=== PATIENT | male | born 1935 | race Caucasian/White ===

== ENCOUNTER 2023-05-04 09:50 | Inpatient (IN) | payer MEDICARE, SELFPAY ==
[2023-05-04] VITALS (16 sets, daily range): BP systolic 121–153; BP diastolic 62–92; PULSE 60–107; RESP 16–19; TEMP 36.4–37.9; O2SAT 91–98; BMI 27.6
--- NOTE | ~2023-05-04 | US_ITS ---
US right upper quadrant DATE: 05/04/2023 12:02 INDICATION: Right upper quadrant abdominal pain TECHNIQUE: Real-time imaging of liver, pancreas, gallbladder COMPARISON: None FINDINGS: No hepatic or pancreatic space-occupying mass lesion is evident. Hepatopedal portal venous flow. Approximately 8 mm echogenic focus is noted the gallbladder neck. No gallbladder wall thickening or p ericholecystic fluid collection. Negative sonographic López's sign. IMPRESSION: Suspected stone in gallbladder neck Reviewed, dictated and finalized at [facility] Reviewed, dictated and finalized at [facility].
--- NOTE | ~2023-05-04 | XR_ITS ---
XR chest 1V portable 05/11/2023 13:19 Indication: Wheezing. Procedure: AP portable chest Comparison: No prior studies for comparison. Findings: Cardiomegaly. Mild interstitial edema. No significant effusion. No pneumothorax. Impression: 1: Mild interstitial edema. Reviewed, dictated and finalized at [facility]. Impression: 1: Mild interstitial edema.
[2023-05-04 10:26] LABS: Basophils Percent Auto 0.3 % (0.2-1.2); Eosinophils Percent Auto 0.1 % (0-4.4); Hematocrit 45.6 % (42.0-52.0); Hemoglobin 14.5 g/dL (14.0-18.0); Immature Granulocyte Absolute 0.06 K/mm3 (0.00-0.031); Immature Granulocyte Percent A 0.5 % (0-0.5); Lymphocytes Absolute Auto 1.19 K/mm3 (0.9-3.2); Lymphocytes Percent Auto 9.9 % (18.3-44.2); Mean Corpuscular HGB Conc 31.8 g/dl (32-36); Mean Corpuscular Hemoglobin 30.6 pg (26-34); Mean Corpuscular Volume 96.2 fl (80-100); Mean Platelet Volume 9.8 fl (7.4-10.4); Monocytes Absolute Auto 0.4 K/mm3 (0.1-0.6); Monocytes Percent Auto 3.2 % (2.6-8.5); Neutrophils Absolute Auto 10.3 K/mm3 (1.3-6.7); Platelet Count Result 281 k/mm3 (150-375); Red Blood Count 4.74 M/mm3 (4.6-6.20); Red Cell Distribution Width 13.5 % (11.5-14.5)
[2023-05-04 10:28] LABS: Appearance Urine Clear (Clear); Bilirubin Urine Negative (Negative); Blood Urine Negative (Negative); Color Urine Yellow (Yellow); Glucose Urine UA Trace mg/dL (Negative); Ketones Urine Trace mg/dL (Negative); Leukocyte Esterase Ur Negative LEU/UL (Negative); Nitrate Urine Negative (Negative); Protein Urine Negative (Negative); Specific Grav Ur 1.025 (1.001-1.035)
[2023-05-04] MEDS: ONDANSETRON INJ 4 MG/2 ML VIAL IV PUSH (10:28)
[2023-05-04] MEDS: MORPHINE SULFATE (*CRX) 2 MG/ML INJ IV PUSH (10:31)
--- NOTE | 2023-05-04 10:32 | ED.ABDPAIN ---
HPI - Abdominal Pain General Chief Complaint: Abdominal Pain Stated Complaint: Abdomen pain Time Seen by Provider: 05/04/23 09:59 History of Present Illness HPI narrative: Patient is an 87-year-old male who presents ER with right upper quadrant abdominal pain. Began last night. Started as nausea. Symptoms of been persistent and cause increased. No aggravating or alleviating factors that she has noted. No radiation. He reports he ate pork tenderloin last night. No history of gallbladder issues. No urinary frequency urgency or dysuria. Normal stool Related Data Home Medications Medication Instructions Recorded Confirmed aspirin 81 mg tablet,delayed 81 mg PO DAILY 05/04/23 05/04/23 release atorvastatin 20 mg tablet 20 mg PO DAILY 05/04/23 05/04/23 metformin 500 mg tablet,extended 500 mg PO DAILY 05/04/23 05/04/23 release 24 hr potassium chloride 20 mEq 20 meq PO DAILY 05/04/23 05/04/23 tablet,extended release Allergies Allergy/AdvReac Type Severity Reaction Status Date / Time Sulfa (Sulfonamide Allergy Unknown Unknown Verified 05/04/23 10:04 Antibiotics) Review of Systems Review of Systems: All systems reviewed & are unremarkable except as noted in HPI and below Constitutional: Constitutional: Denies chills and Denies fever(s) Gastrointestinal: Gastrointestinal: Reports abdominal pain, Denies constipation, Denies diarrhea, Reports nausea and Denies vomiting Genitourinary: Genitourinary: Denies hematuria, Denies dysuria and Denies urinary frequency Musculoskeletal: Musculoskeletal: Denies back pain and Denies myalgias PMFSH Past Medical History Medical History Dyslipidemia Essential (primary) hypertension Type 2 diabetes mellitus Surgical History Surgical History History of bilateral inguinal hernia repair (1989) History of bunionectomy of right great toe (1997) History of cataract extraction with lens replacement History of hydrocelectomy (03/2008) History of left inguinal hernia repair (08/2014) Family History Family History Father Family history of heart disease in male family member before age 55 Hypertension Sibling Family history of malignant neoplasm of esophagus Other Family history of malignant neoplasm Social History Social History Social History: Surrogate medical decision maker: placido Harmon. Code status: Full code. Smoking status: Never smoker Alcohol intake: current Drinks per week: 1 Alcohol use details: Social alcohol use in moderation. Substance use: never Lack of Transportation: No Lack of Food: Never True Current Housing: I Have Housing Concerned About Future Housing: No Difficulty Paying Gas/Electric Bills: No Difficulty Paying for Meds: No Currently Unemployed: No Education: Bachelor's Degree Difficulty w/ Childcare or Family Care: No Spiritual care concerns: No Exam Narrative: GENERAL: Well-appearing, well-nourished, and in no acute distress. HEAD: Normocephalic, atraumatic. EYES: PERRL and EOMI. ENT: Mucous membranes moist. CHEST: Clear to auscultation. No respiratory distress. HEART: Regular rate and rhythm. Normal peripheral pulses. ABDOMEN: Soft, palpation right upper quadrant of the abdomen with positive López sign, nondistended, normal active bowel sounds.. EXTREMITIES: Normal range of motion. No edema. SKIN: Warm, dry, no rash. NEURO: Alert and oriented x3. PSYCH: Normal mood and affect. Course Course Emergency Course: Patient history is resting comfortably but still with discomfort in the right upper quadrant. Discussed case with general surgery who would recommend IV antibiotics, n.p.o. with ice chips, and medical admission. Patient has been accepted by the medical ser
[2023-05-04 10:33] LABS: Add Urine Microscopic? NO
[2023-05-04 10:41] LABS: Alanine Aminotransferase 29 U/L (6-50); Albumin Level 4.4 g/dL (3.5-5.1); Alkaline Phosphatase 84 U/L (38-126); Anion Gap 11 mmol/L (8-16); Aspartate Amino Transferase 28 U/L (17-59); Bilirubin,Total 0.6 mg/dL (0.2-1.3); Blood Urea Nitrogen 18 mg/dL (9-20); Carbon Dioxide 27 mmol/L (22-30); Chloride 101 mmol/L (98-107); Estimated CRCL calculation 47 ml/min; Estimated Glomerular Filt Rate > 60; Glucose 177 mg/dL (65-110); Lipase 61 U/L (23-300); Potassium 4.2 mmol/L (3.4-5.0); Sodium 139 mmol/L (137-145)
[2023-05-04] MEDS: MORPHINE SULFATE (*CRX) 4 MG/ML INJ 2 MG IV PUSH (12:24)
--- NOTE | 2023-05-04 13:00 | PC.NURSE ---
no cultures needed prior to antibiotics per MD Alvarez.
[2023-05-04] MEDS: PIPERACILLN/TAZ 3.375GM/NS50ML 3.375 GM/50 ML BAG IVPB ×2 (13:03→17:08)
--- NOTE | 2023-05-04 13:19 | PM.IMHP ---
H&P: HPI History of Present Illness Date/Time: 05/04/23 14:00 Chief Complaint: Abdominal pain. Narrative: This is an 87-year-old male with hyperlipidemia, hyperlipidemia, and prediabetes with a reported recent hemoglobin A1c of 6% who presented to the emergency department via private vehicle from home for evaluation of abdominal pain. The patient provides the following history. He had pork tenderloin for dinner last night and hours later he developed nausea, vomiting, and nonradiating right upper quadrant pain ?like I pulled a muscle.? his symptoms persisted throughout the night and he came in today for evaluation. He has never had similar symptoms. He has known history of gallbladder disease, peptic ulcer disease, or pancreatitis. He denies fever, chills, sweats, chest pain, shortness a breath, hematemesis, and diarrhea. In the ED he was found to have right upper quadrant pain on exam, a WBC count of 12,000, and a right upper quadrant ultrasound showing 8 mm suspected stone in the gallbladder neck. His pain has improved somewhat with IV morphine. He was started on Zosyn and is being admitted in this setting for pain control and surgery consultation. Review of Systems Review of Systems: Twelve systems were reviewed and are negative except for as per HPI. FOR[facility]LY [facility] Past Medical History Medical History (Updated 05/05/23 @ 14:15 by Luz Montoya PA-C) Dyslipidemia Essential (primary) hypertension Prediabetes Surgical History Surgical History History of bilateral inguinal hernia repair (1989) History of bunionectomy of right great toe (1997) History of cataract extraction with lens replacement History of hydrocelectomy (03/2008) History of left inguinal hernia repair (08/2014) Family History Family History Father Family history of heart disease in male family member before age 55 Hypertension Sibling Family history of malignant neoplasm of esophagus Other Family history of malignant neoplasm Social History Social History (Updated 05/05/23 @ 14:16 by Luz Montoya PA-C) Social History: Surrogate medical decision maker: Fabio Tenorio, placido. Code status: Full code. Smoking status: Never smoker Alcohol intake: current Drinks per week: 1 Alcohol use details: Social alcohol use in moderation. Substance use: never Lack of Transportation: No Lack of Food: Never True Current Housing: I Have Housing Concerned About Future Housing: No Difficulty Paying Gas/Electric Bills: No Difficulty Paying for Meds: No Currently Unemployed: No Education: Bachelor's Degree Difficulty w/ Childcare or Family Care: No Additional living arrangements comments: Lives with spouse. 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 Spiritual care concerns: No Meds Home Medications and Allergies Home Medications Medication Instructions Recorded Confirmed Type aspirin 81 mg tablet,delayed 81 mg PO DAILY 05/04/23 05/04/23 History release atorvastatin 20 mg tablet 20 mg PO DAILY 05/04/23 05/04/23 History metformin 500 mg tablet,extended 500 mg PO DAILY 05/04/23 05/04/23 History release 24 hr potassium chloride 20 mEq 20 meq PO DAILY 05/04/23 05/04/23 History tablet,extended release Allergies Allergy/AdvReac Type Severity Reaction Status Date / Time Sulfa (Sulfonamide Allergy Unknown Unknown Verified 05/04/23 10:04 Antibiotics) Vital Signs Vital Signs - 24 hr 05/04/23 10:02 05/04/23 12:27 Temperature 97.5 F L Pulse Rate 76 63 Respiratory Rate 18 Blood Pressure 153/92 H 145/83 H Pulse Oximetry 98 97 Oxygen Delivery Room Air Exam Narrative: General: Well-developed nontoxic-appearing male in the semi-Hernandez position in bed in no distress. Weight: 84.8 kg. BMI: 27.6. HEENT: PERRL, EOMI. Sclera anicteric. Oral mucosa
[2023-05-04] MEDS: SODIUM CHLORIDE 0.9% IV 1,000 ML 125 ML IV CONT (13:50)
--- NOTE | 2023-05-04 14:42 | PC.NURSE ---
admitted to floor with IV fluids infusing per order
--- NOTE | 2023-05-04 15:02 | PM.CNGS ---
Assessment and Plan Assessment and plan (1) Cholecystitis with cholelithiasis: Qualifiers: Biliary obstruction: with biliary obstruction Cholecystitis acuity: acute Cholelithiasis location: gallbladder Qualified Code(s): K80.01 - Calculus of gallbladder with acute cholecystitis with obstruction Code(s): K80.10 - Calculus of gallbladder with chronic cholecystitis without obstruction Status: Acute Assessment and Plan: Appears to have acute cholecystitis with relatively small obstructing stone in or near cystic duct. Since patient still having considerable pain after narcotic analgesics, agree best to admit and start IV antibiotics, make NPO, and administer IV narcotics as needed for pain control. Hopefully, pain will dissipate and can feed tomorrow. Will need eventual cholecystectomy but may be able to be done as outpatient if symptoms resolve. Thanks for asking me to see this patient in consultation. I will follow along with you. (2) Type 2 diabetes mellitus: Code(s): E11.9 - Type 2 diabetes mellitus without complications Status: Chronic Assessment and Plan: blood sugars only mildly elevated (3) Essential (primary) hypertension: Code(s): I10 - Essential (primary) hypertension Status: Chronic (4) Dyslipidemia: Code(s): E78.5 - Hyperlipidemia, unspecified Status: Chronic History of Present Illness Consult details Consult date: 05/04/23 Reason for consult: abdominal pain Requesting physician: Dom Alvarez MD Narrative: Patient is an 87 yo man with hypertension and NIDDM who came to the ER earlier today with vomitting and RUQ abdominal pain. Pain and emesis started last night after eating pork tenderloin. Persisted through the night and came to ED this morning. Exam showed RUQ tenderness and labs remarkable for WBC of 12,000. LFT's and lipase were normal. U/S of GB showed 8mm echogenic lesion in neck of GB or cystic duct suspected of being a stone. There was no sonographic López's sign, GB wall thickening or pericholecystic fluid. Patient had 2 rounds of IV Morphine in the ED and was still having pretty significant discomfort. He has been admitted and is now seen in consultation for possible cholecystitis. Blood sugar in the ED was 177. Review of Systems Review of Systems: All systems reviewed & are unremarkable except as noted in HPI and below (HPI and those items noted below) Constitutional: Constitutional: Denies chills and Denies fever(s) Cardiovascular: Cardiovascular: Denies chest pain, Denies diaphoresis, Denies dyspnea and Denies paroxysmal nocturnal dyspnea Respiratory: Respiratory: Denies chest congestion, Denies cough and Denies dyspnea Integumentary/Breasts: Skin/Breast: Denies lesions and Denies rash PMFSH Past Medical History Medical History Dyslipidemia Essential (primary) hypertension Type 2 diabetes mellitus Surgical History Surgical History History of bilateral inguinal hernia repair (1989) History of bunionectomy of right great toe (1997) History of cataract extraction with lens replacement History of hydrocelectomy (03/2008) History of left inguinal hernia repair (08/2014) Family History Family History Father Family history of heart disease in male family member before age 55 Hypertension Sibling Family history of malignant neoplasm of esophagus Other Family history of malignant neoplasm Social History Social History Social History: Surrogate medical decision maker: Fabio Tenorio, son. Code status: Full code. Smoking status: Never smoker Alcohol intake: current Drinks per week: 1 Alcohol use details: Social alcohol use in moderation. Substance use: never Lack of Transportation: No [place]
[2023-05-04] MEDS: ENOXAPARIN 30 MG/0.3 ML SYRINGE SUB-Q (20:27)
[2023-05-04 21:16] LABS: Glucose Point of Care 135 mg/dl (65-105)
[2023-05-04] MEDS: IBUPROFEN IV 800 MG/200 ML 800 MG/200 ML BAG 400 MG IVPB (21:48)
[2023-05-05] MEDS: PIPERACILLN/TAZ 3.375GM/NS50ML 3.375 GM/50 ML BAG IVPB ×5 (01:11→23:58)
[2023-05-05] MEDS: SODIUM CHLORIDE 0.9% IV 1,000 ML 125 ML IV CONT (01:13)
[2023-05-05 05:53] VITALS: BP 120/63; PULSE 69; RESP 16; TEMP 37.1; O2SAT 92
[2023-05-05 06:49] LABS: Hematocrit 41.1 % (42.0-52.0); Hemoglobin 12.9 g/dL (14.0-18.0); Mean Corpuscular HGB Conc 31.4 g/dl (32-36); Mean Corpuscular Hemoglobin 30.6 pg (26-34); Mean Corpuscular Volume 97.4 fl (80-100); Mean Platelet Volume 10.1 fl (7.4-10.4); Platelet Count Result 219 k/mm3 (150-375); Red Blood Count 4.22 M/mm3 (4.6-6.20); Red Cell Distribution Width 13.9 % (11.5-14.5); White Blood Count 11.4 K/mm3 (4.5-10.0)
[2023-05-05 07:01] LABS: Alanine Aminotransferase 24 U/L (6-50); Albumin Level 3.5 g/dL (3.5-5.1); Alkaline Phosphatase 56 U/L (38-126); Anion Gap 4 mmol/L (8-16); Aspartate Amino Transferase 26 U/L (17-59); Bilirubin,Total 1.2 mg/dL (0.2-1.3); Blood Urea Nitrogen 18 mg/dL (9-20); Calcium 7.8 mg/dL (8.4-10.2); Carbon Dioxide 30 mmol/L (22-30); Chloride 103 mmol/L (98-107); Estimated CRCL calculation 43 ml/min; Estimated Glomerular Filt Rate > 60; Glucose 138 mg/dL (65-110); Potassium 3.8 mmol/L (3.4-5.0); Sodium 137 mmol/L (137-145)
[2023-05-05] MEDS: IBUPROFEN IV 800 MG/200 ML 800 MG/200 ML BAG 400 MG IVPB (09:38)
--- NOTE | 2023-05-05 12:05 | PM.PNGS ---
Progress Note: A&P Assessment and Plan (1) Cholecystitis with cholelithiasis: Code(s): K80.10 - Calculus of gallbladder with chronic cholecystitis without obstruction Status: Acute Assessment and Plan: Much improved. Tenderness gone and pain is nearly gone. Will go ahead and start diabetic diet, low fat. If tolerates well, can go home tomorrow and reschedule as outpatient for laparoscopic cholecystectomy. I explained the procedure of laparoscopic cholecystectomy to the patient and his . The procedure the risks the benefits were discussed. All questions were answered. We will see how he does with eating and hopefully go home tomorrow. Subjective Subjective Date/Time Seen: 05/05/23 12:05 Patient reports: feels better, pain is less, tolerating liquids well and afebrile Review of Systems Review of Systems: All systems reviewed & are unremarkable except as noted in HPI and below (HPI) Exam Const: General: comfortable and no acute distress Orientation/consciousness: patient oriented x3 GI: Inspection: normal to inspection and non-distended GI Palp: Yes Soft to palpation, No Tenderness to palpation present (GI), No Guarding due to palpation present (GI), No Palpable mass present and No Rebound tenderness present Auscultation: normal bowel sounds Neuro: General: patient oriented x3 and no focal motor deficits Extrem: General: no calf tenderness and no edema Psych: Affect: normal affect Insight: Good insight present (Psych) Judgement: Good judgement present (Psych) Objective Data Vital Signs Vital Signs: Vital Signs - 24 hr 05/04/23 12:27 05/04/23 12:41 05/04/23 12:46 Temperature Pulse Rate 63 Respiratory Rate Blood Pressure 145/83 H 136/69 Pulse Oximetry 97 92 93 Oxygen Delivery 05/04/23 12:47 05/04/23 13:00 05/04/23 13:01 Temperature Pulse Rate Respiratory Rate Blood Pressure 128/66 Pulse Oximetry 93 92 93 Oxygen Delivery 05/04/23 13:26 05/04/23 13:31 05/04/23 13:33 Temperature Pulse Rate Respiratory Rate Blood Pressure 134/71 Pulse Oximetry 94 93 97 Oxygen Delivery 05/04/23 13:49 05/04/23 14:07 05/04/23 15:09 Temperature Pulse Rate 60 Respiratory Rate 19 Blood Pressure 136/62 Pulse Oximetry 93 94 Oxygen Delivery Room Air 05/04/23 15:00 05/04/23 20:00 05/04/23 20:55 Temperature 37.1 C 37.9 C H Pulse Rate 107 H Respiratory Rate 16 Blood Pressure 121/90 Pulse Oximetry 91 Oxygen Delivery Room Air 05/04/23 22:47 05/04/23 22:48 05/05/23 05:53 Temperature 37.2 C 37.2 C 37.1 C Pulse Rate 69 Respiratory Rate 16 Blood Pressure 120/63 Pulse Oximetry 92 Oxygen Delivery Intake/Output Intake/Output: Intake & Output 05/02/23 05/03/23 05/04/23 05/05/23 23:59 23:59 23:59 23:59 Intake Total 1300 50 Output Total 300 Balance 1300 -250 Meds/Results Medications: Active Medications Generic Name Dose Route Start Last Admin Trade Name Freq PRN Reason Stop Dose Admin Enoxaparin Sodium 30 mg 05/04/23 21:00 05/04/23 20:27 Enoxaparin 30 Mg/0.3 Ml Syringe SUB-Q 30 mg Q12HR JORDON Administration Fentanyl Citrate 12.5 mcg 05/04/23 15:23 Fentanyl Citrate Inj (*Crx) 100 Mcg/2 Ml Vial IV PUSH Q2H PRN Pain Rated 4-6 Fentanyl Citrate 25 mcg 05/04/23 15:23 Fentanyl Citrate Inj (*Crx) 100 Mcg/2 Ml Vial IV PUSH Q2H PRN Pain Rated 7-10 Piperacillin/Tazobactam/Dextrose 3.375 gm in 50 mls @ 100 mls/hr 05/04/23 18:00 05/05/23 05:49 Zosyn 3.375 Gm/Ns 50 Ml IVPB 100 mls/hr Q6HR JORDON Administration Sodium Chloride 1,000 mls @ 85 mls/hr 05/04/23 13:15 05/05/23 01:13 Normal Saline Iv IV CONT 125 mls/hr .[id number] JORDON Administration Ibuprofen 800 mg in 200 mls @ 400 mls/hr 05/04/23 15:23 05/05/23 09:38 Caldolor 800 Mg/200 Ml IVPB 400 mls/hr Q6H PRN Administration Pain Rated 1-3 Ondansetron HCl 4 mg
[2023-05-05 14:00] VITALS: BP 118/72; PULSE 73; RESP 16; TEMP 37.1; O2SAT 93
--- NOTE | 2023-05-05 15:49 | PM.IMPN ---
Progress Note: A&P Assessment and Plan (1) Cholecystitis with cholelithiasis: Code(s): K80.10 - Calculus of gallbladder with chronic cholecystitis without obstruction Status: Acute (2) Essential (primary) hypertension: Code(s): I10 - Essential (primary) hypertension Status: Chronic (3) Dyslipidemia: Code(s): E78.5 - Hyperlipidemia, unspecified Status: Chronic (4) Prediabetes: Code(s): R73.03 - Prediabetes Status: Acute Plan The patient presented to the emergency department for evaluation of right-sided pain and nausea as detailed in HPI. Labs, imaging, EKG, and all reports were personally reviewed. Upper quadrant ultrasound showed a stone in the gallbladder neck and his history seems consistent with developing cholecystitis with cholelithiasis. He has been started on Zosyn. LFTs are all normal. Started on clear liquid and being advanced. Plan for interval cholecystectomy as an outpatient basis. General surgery on board. DVT prophylaxis with enoxaparin. Subjective Date/time seen: 05/05/23 15:49 Interval history: Pain is improved. No nausea vomiting. Tolerating clear liquids. Remains on antibiotics. Review of Systems Review of Systems: All systems reviewed & are unremarkable except as noted in HPI and below Exam Narrative: General: Well-developed nontoxic-appearing male in the semi-Hernandez position in bed in no distress. HEENT: PERRL, EOMI. Sclera anicteric. Oral mucosa moist. Oropharynx clear. Neck: Supple. Respiratory: Lungs are clear to auscultation bilaterally. Cardiovascular: Regular rate and rhythm with S1-S2. Gastrointestinal: Abdomen is soft and nondistended with positive bowel sounds. He is slightly tender to deeper palpation in the epigastric and right upper quadrant. No guarding or rebound tenderness. Skin: Warm and dry. No rash or lesions on limited exam. Extremities: No cyanosis, clubbing, or edema. Radial and pedal pulses intact. Neurological: Alert. Cranial nerves 2-12 are grossly intact. No gross focal deficits to casual conversation. Psychiatric: Appropriate mood and affect. Objective Data Vital Signs Vital Signs: Vital Signs - 24 hr 05/04/23 20:00 05/04/23 20:55 05/04/23 22:47 Temperature 100.2 F H 99.0 F Pulse Rate 107 H Respiratory Rate 16 Blood Pressure 121/90 Pulse Oximetry 91 Oxygen Delivery Room Air 05/04/23 22:48 05/05/23 05:53 Temperature 99 F 98.7 F Pulse Rate 69 Respiratory Rate 16 Blood Pressure 120/63 Pulse Oximetry 92 Oxygen Delivery Intake/Output Intake/Output: Intake & Output 05/02/23 05/03/23 05/04/23 05/05/23 23:59 23:59 23:59 23:59 Intake Total 1300 100 Output Total 300 Balance 1300 -200 Meds/Results Medications: Active Medications Generic Name Dose Route Start Last Admin Trade Name Freq PRN Reason Stop Dose Admin Dextrose 12.5 gm 05/05/23 14:16 Dextrose 50% 25 Gm/50 Ml Syringe IV PUSH PRN PRN Hypoglycemia Protocol Enoxaparin Sodium 30 mg 05/04/23 21:00 05/05/23 13:05 Enoxaparin 30 Mg/0.3 Ml Syringe SUB-Q Not Given Q12HR JORDON Fentanyl Citrate 12.5 mcg 05/04/23 15:23 Fentanyl Citrate Inj (*Crx) 100 Mcg/2 Ml Vial IV PUSH Q2H PRN Pain Rated 4-6 Fentanyl Citrate 25 mcg 05/04/23 15:23 Fentanyl Citrate Inj (*Crx) 100 Mcg/2 Ml Vial IV PUSH Q2H PRN Pain Rated 7-10 Glucagon 1 mg 05/05/23 14:16 Glucagon For Inj 1 Mg Vial IM PRN PRN Hypoglycemia Protocol Glucose 15 gm 05/05/23 14:16 Glucose Oral Gel 15 Gm Of Glucse In 37.5 Gm Tube PO PRN PRN Hypoglycemia Protocol Piperacillin/Tazobactam/Dextrose 3.375 gm in 50 mls @ 100 mls/hr 05/04/23 18:00 05/05/23 13:06 Zosyn 3.375 Gm/Ns 50 Ml IVPB 100 mls/hr Q6HR JORDON Administration Sodium Chloride 1,000 mls @ 85 mls/hr 05/04/23 13:15 05/05/23 01:13 Normal Saline Iv IV CONT 125 mls/hr .[id number]
[2023-05-05 21:25] VITALS: BP 99/68; PULSE 66; RESP 16; TEMP 36.2; O2SAT 92
[2023-05-05 21:32] LABS: Glucose Point of Care 133 mg/dl (65-105)
[2023-05-05] MEDS: ENOXAPARIN 30 MG/0.3 ML SYRINGE SUB-Q (22:21)
[2023-05-05] MEDS: fentaNYL CITRATE INJ (*CRX) 100 MCG/2 ML VIAL 25 MCG IV PUSH (22:32)
[2023-05-06] MEDS: SODIUM CHLORIDE 0.9% IV 1,000 ML 125 ML IV CONT (04:21)
[2023-05-06] MEDS: PIPERACILLN/TAZ 3.375GM/NS50ML 3.375 GM/50 ML BAG IVPB ×4 (05:37→22:51)
[2023-05-06 06:14] VITALS: BP 108/55; PULSE 77; RESP 16; TEMP 36.2; O2SAT 93
[2023-05-06 06:38] LABS: Basophils Absolute Auto 0.1 K/mm3 (0.0-0.1); Basophils Percent Auto 0.5 % (0.2-1.2); Eosinophils Absolute Auto 0.1 K/mm3 (0-0.3); Eosinophils Percent Auto 0.5 % (0-4.4); Hematocrit 37.6 % (42.0-52.0); Hemoglobin 11.7 g/dL (14.0-18.0); Immature Granulocyte Absolute 0.08 K/mm3 (0.00-0.031); Immature Granulocyte Percent A 0.6 % (0-0.5); Lymphocytes Absolute Auto 1.35 K/mm3 (0.9-3.2); Lymphocytes Percent Auto 10.4 % (18.3-44.2); Mean Corpuscular HGB Conc 31.1 g/dl (32-36); Mean Corpuscular Hemoglobin 30.5 pg (26-34); Mean Corpuscular Volume 97.9 fl (80-100); Mean Platelet Volume 9.8 fl (7.4-10.4); Monocytes Percent Auto 7.7 % (2.6-8.5); Neutrophils Absolute Auto 10.4 K/mm3 (1.3-6.7); Neutrophils Percent Auto 80.3 % (45.5-73.1); Platelet Count Result 190 k/mm3 (150-375); Red Blood Count 3.84 M/mm3 (4.6-6.20); Red Cell Distribution Width 14.1 % (11.5-14.5)
[2023-05-06 06:44] LABS: Alanine Aminotransferase 21 U/L (6-50); Albumin Level 3.4 g/dL (3.5-5.1); Alkaline Phosphatase 51 U/L (38-126); Anion Gap 6 mmol/L (8-16); Aspartate Amino Transferase 27 U/L (17-59); Blood Urea Nitrogen 17 mg/dL (9-20); Calcium 7.8 mg/dL (8.4-10.2); Carbon Dioxide 29 mmol/L (22-30); Chloride 103 mmol/L (98-107); Estimated CRCL calculation 39 ml/min; Estimated Glomerular Filt Rate 57; Glucose 125 mg/dL (65-110); Magnesium 1.9 mg/dL (1.6-2.3); Potassium 3.9 mmol/L (3.4-5.0); Sodium 138 mmol/L (137-145)
--- NOTE | 2023-05-06 07:20 | PM.PNGS ---
Progress Note: A&P Assessment and Plan (1) Cholecystitis with cholelithiasis: Code(s): K80.10 - Calculus of gallbladder with chronic cholecystitis without obstruction Status: Acute Assessment and Plan: Pain has recurred after eating. Discussed with patient and his . Probably best if he stays in the hospital until we can go ahead with laparoscopic cholecystectomy. I have him scheduled for around noon or 12 30. I discussed the procedure with him and his yesterday. He has no questions about the procedure today. Continue IV antibiotics and low-fat diabetic diet. Plan on surgery day after tomorrow. (2) Type 2 diabetes mellitus: Code(s): E11.9 - Type 2 diabetes mellitus without complications Status: Chronic Subjective Subjective Date/Time Seen: 05/06/23 07:20 Patient reports: still having pain (Pain recurred yesterday afternoon. Had just eaten lunch. No pain at present.) Review of Systems Review of Systems: All systems reviewed & are unremarkable except as noted in HPI and below (HPI) Exam Const: General: comfortable and no acute distress Orientation/consciousness: patient oriented x3 GI: Inspection: normal to inspection and non-distended GI Palp: Yes Soft to palpation, Yes Tenderness to palpation present (GI) (Right upper quadrant), No Guarding due to palpation present (GI) and No Rebound tenderness present Auscultation: normal bowel sounds Neuro: General: patient oriented x3 and no focal motor deficits Extrem: General: no calf tenderness and no edema Psych: Affect: normal affect Insight: Good insight present (Psych) Judgement: Good judgement present (Psych) Objective Data Vital Signs Vital Signs: Vital Signs - 24 hr 05/05/23 08:00 05/05/23 14:00 05/05/23 21:25 Temperature 37.1 C 36.2 C L Pulse Rate 73 66 Respiratory Rate 16 16 Blood Pressure 118/72 99/68 L Pulse Oximetry 93 92 Oxygen Delivery Room Air 05/06/23 06:14 Temperature 36.2 C L Pulse Rate 77 Respiratory Rate 16 Blood Pressure 108/55 L Pulse Oximetry 93 Oxygen Delivery Intake/Output Intake/Output: Intake & Output 05/03/23 05/04/23 05/05/23 05/06/23 23:59 23:59 23:59 23:59 Intake Total 1300 1440 50 Output Total 300 200 Balance 1300 1140 -150 Meds/Results Medications: Active Medications Generic Name Dose Route Start Last Admin Trade Name Freq PRN Reason Stop Dose Admin Dextrose 12.5 gm 05/05/23 14:16 Dextrose 50% 25 Gm/50 Ml Syringe IV PUSH PRN PRN Hypoglycemia Protocol Enoxaparin Sodium 30 mg 05/04/23 21:00 05/05/23 22:21 Enoxaparin 30 Mg/0.3 Ml Syringe SUB-Q 30 mg Q12HR JORDON Administration Fentanyl Citrate 12.5 mcg 05/04/23 15:23 Fentanyl Citrate Inj (*Crx) 100 Mcg/2 Ml Vial IV PUSH Q2H PRN Pain Rated 4-6 Fentanyl Citrate 25 mcg 05/04/23 15:23 05/05/23 22:32 Fentanyl Citrate Inj (*Crx) 100 Mcg/2 Ml Vial IV PUSH 25 mcg Q2H PRN Administration Pain Rated 7-10 Glucagon 1 mg 05/05/23 14:16 Glucagon For Inj 1 Mg Vial IM PRN PRN Hypoglycemia Protocol Glucose 15 gm 05/05/23 14:16 Glucose Oral Gel 15 Gm Of Glucse In 37.5 Gm Tube PO PRN PRN Hypoglycemia Protocol Piperacillin/Tazobactam/Dextrose 3.375 gm in 50 mls @ 100 mls/hr 05/04/23 18:00 05/06/23 05:37 Zosyn 3.375 Gm/Ns 50 Ml IVPB 100 mls/hr Q6HR JORDON Administration Sodium Chloride 1,000 mls @ 85 mls/hr 05/04/23 13:15 05/06/23 04:21 Normal Saline Iv IV CONT 125 mls/hr .[id number] JORDON Administration Ibuprofen 800 mg in 200 mls @ 400 mls/hr 05/04/23 15:23 05/05/23 09:38 Caldolor 800 Mg/200 Ml IVPB 400 mls/hr Q6H PRN Administration Pain Rated 1-3 Dextrose 1,000 mls @ 100 mls/hr 05/05/23 14:16 Dextrose 5% 1,000 Ml IVPB PRN PRN Hypoglycemia Protocol Insulin Aspart 2 - 5 units 05/05/23 17:00 05/05/23 17:36 Insulin Aspart (*Bkc) 100 Units/Ml SUB
[2023-05-06 07:38] LABS: Glucose Point of Care 119 mg/dl (65-105)
[2023-05-06] MEDS: ENOXAPARIN 30 MG/0.3 ML SYRINGE SUB-Q (09:09)
[2023-05-06 09:21] VITALS: O2SAT 91
[2023-05-06 11:27] LABS: Glucose Point of Care 139 mg/dl (65-105)
--- NOTE | 2023-05-06 13:37 | PM.IMPN ---
Progress Note: A&P Assessment and Plan (1) Cholecystitis with cholelithiasis: Code(s): K80.10 - Calculus of gallbladder with chronic cholecystitis without obstruction Status: Acute (2) Essential (primary) hypertension: Code(s): I10 - Essential (primary) hypertension Status: Chronic (3) Dyslipidemia: Code(s): E78.5 - Hyperlipidemia, unspecified Status: Chronic (4) Prediabetes: Code(s): R73.03 - Prediabetes Status: Acute Plan 05/06/2023: the patient presented to the emergency department for evaluation of right-sided pain and nausea as detailed in HPI. Labs, imaging, EKG, and all reports were personally reviewed. Upper quadrant ultrasound showed a stone in the gallbladder neck and his history seems consistent with developing cholecystitis with cholelithiasis. He has been started on Zosyn. LFTs are all normal. Started on clear liquid and being advanced however did not tolerate advancement. Now plan for interval cholecystectomy coming/day. Continue IV fluid and IV Zosyn as ordered. Labs reviewed general surgery on board. DVT prophylaxis with enoxaparin. Subjective Date/time seen: 05/06/23 13:37 Interval history: Pain worsens with low-fat diet last night. Currently holding off on any diet. Leukocytosis worsened. LFTs the same. Remains on IV Zosyn. Surgeries planned coming Review of Systems Review of Systems: All systems reviewed & are unremarkable except as noted in HPI and below Exam Narrative: General: Well-developed nontoxic-appearing male in the semi-Hernandez position in bed in no distress. HEENT: PERRL, EOMI. Sclera anicteric. Oral mucosa moist. Oropharynx clear. Neck: Supple. Respiratory: Lungs are clear to auscultation bilaterally. Cardiovascular: Regular rate and rhythm with S1-S2. Gastrointestinal: Abdomen is soft and nondistended with positive bowel sounds. He is slightly tender to deeper palpation in the epigastric and right upper quadrant. No guarding or rebound tenderness. Skin: Warm and dry. No rash or lesions on limited exam. Extremities: No cyanosis, clubbing, or edema. Radial and pedal pulses intact. Neurological: Alert. Cranial nerves 2-12 are grossly intact. No gross focal deficits to casual conversation. Psychiatric: Appropriate mood and affect. Objective Data Vital Signs Vital Signs: Vital Signs - 24 hr 05/05/23 14:00 05/05/23 21:25 05/06/23 06:14 Temperature 98.7 F 97.2 F L 97.2 F L Pulse Rate 73 66 77 Respiratory Rate 16 16 16 Blood Pressure 118/72 99/68 L 108/55 L Pulse Oximetry 93 92 93 Oxygen Delivery 05/06/23 09:21 Temperature Pulse Rate Respiratory Rate Blood Pressure Pulse Oximetry 91 Oxygen Delivery Room Air Intake/Output Intake/Output: Intake & Output 05/03/23 05/04/23 05/05/23 05/06/23 23:59 23:59 23:59 23:59 Intake Total 1300 1440 750 Output Total 300 200 Balance 1300 1140 550 Meds/Results Medications: Active Medications Generic Name Dose Route Start Last Admin Trade Name Freq PRN Reason Stop Dose Admin Dextrose 12.5 gm 05/05/23 14:16 Dextrose 50% 25 Gm/50 Ml Syringe IV PUSH PRN PRN Hypoglycemia Protocol Enoxaparin Sodium 30 mg 05/04/23 21:00 05/06/23 09:09 Enoxaparin 30 Mg/0.3 Ml Syringe SUB-Q 30 mg Q12HR JORDON Administration Fentanyl Citrate 12.5 mcg 05/04/23 15:23 Fentanyl Citrate Inj (*Crx) 100 Mcg/2 Ml Vial IV PUSH Q2H PRN Pain Rated 4-6 Fentanyl Citrate 25 mcg 05/04/23 15:23 05/05/23 22:32 Fentanyl Citrate Inj (*Crx) 100 Mcg/2 Ml Vial IV PUSH 25 mcg Q2H PRN Administration Pain Rated 7-10 Glucagon 1 mg 05/05/23 14:16 Glucagon For Inj 1 Mg Vial IM PRN PRN Hypoglycemia Protocol Glucose 15 gm 05/05/23 14:16 Glucose Oral Gel 15 Gm Of Glucse In 37.5 Gm Tube PO PRN PRN Hypoglycemia Protocol Piperacillin/Tazobactam/Dextrose 3.375 gm in 50 mls @ 100 mls/hr
[2023-05-06 13:55] VITALS: BP 159/137; PULSE 66; RESP 20; TEMP 35.9; O2SAT 92
[2023-05-06 14:11] VITALS: BP 120/78
[2023-05-06 16:39] LABS: Glucose Point of Care 115 mg/dl (65-105)
[2023-05-06] MEDS: SODIUM CHLORIDE 0.9% IV 1,000 ML 85 ML IV CONT (17:27)
[2023-05-06 20:50] VITALS: BP 148/99; PULSE 79; RESP 18; TEMP 36.8; O2SAT 92
[2023-05-06 21:03] LABS: Hematocrit 37.1 % (42.0-52.0); Hemoglobin 11.8 g/dL (14.0-18.0)
[2023-05-06] MEDS: ONDANSETRON INJ 4 MG/2 ML VIAL IV PUSH (21:03)
[2023-05-06 21:10] LABS: Glucose Point of Care 127 mg/dl (65-105)
[2023-05-07] MEDS: PIPERACILLN/TAZ 3.375GM/NS50ML 3.375 GM/50 ML BAG IVPB ×4 (05:11→23:10)
[2023-05-07 06:14] VITALS: BP 143/87; PULSE 72; RESP 16; TEMP 37; O2SAT 96
[2023-05-07] MEDS: SODIUM CHLORIDE 0.9% IV 1,000 ML 85 ML IV CONT ×2 (06:43→18:09)
[2023-05-07 06:53] LABS: Basophils Absolute Auto 0.1 K/mm3 (0.0-0.1); Basophils Percent Auto 0.6 % (0.2-1.2); Eosinophils Absolute Auto 0.3 K/mm3 (0-0.3); Eosinophils Percent Auto 3.2 % (0-4.4); Hematocrit 38.6 % (42.0-52.0); Hemoglobin 11.9 g/dL (14.0-18.0); Immature Granulocyte Absolute 0.03 K/mm3 (0.00-0.031); Immature Granulocyte Percent A 0.3 % (0-0.5); Lymphocytes Percent Auto 20.7 % (18.3-44.2); Mean Corpuscular HGB Conc 30.8 g/dl (32-36); Mean Corpuscular Hemoglobin 30.1 pg (26-34); Mean Corpuscular Volume 97.5 fl (80-100); Mean Platelet Volume 10.4 fl (7.4-10.4); Monocytes Absolute Auto 0.7 K/mm3 (0.1-0.6); Monocytes Percent Auto 7.9 % (2.6-8.5); Neutrophils Absolute Auto 5.8 K/mm3 (1.3-6.7); Neutrophils Percent Auto 67.3 % (45.5-73.1); Platelet Count Result 204 k/mm3 (150-375); Red Blood Count 3.96 M/mm3 (4.6-6.20); White Blood Count 8.7 K/mm3 (4.5-10.0)
[2023-05-07 07:02] LABS: Alanine Aminotransferase 21 U/L (6-50); Albumin Level 3.4 g/dL (3.5-5.1); Alkaline Phosphatase 62 U/L (38-126); Anion Gap 7 mmol/L (8-16); Aspartate Amino Transferase 28 U/L (17-59); Bilirubin,Total 0.8 mg/dL (0.2-1.3); Blood Urea Nitrogen 15 mg/dL (9-20); Calcium 7.8 mg/dL (8.4-10.2); Carbon Dioxide 25 mmol/L (22-30); Chloride 107 mmol/L (98-107); Estimated CRCL calculation 43 ml/min; Estimated Glomerular Filt Rate > 60; Glucose 108 mg/dL (65-110); Magnesium 2.2 mg/dL (1.6-2.3); Potassium 3.6 mmol/L (3.4-5.0); Sodium 139 mmol/L (137-145)
[2023-05-07 08:23] LABS: Glucose Point of Care 109 mg/dl (65-105)
[2023-05-07] MEDS: ENOXAPARIN 30 MG/0.3 ML SYRINGE SUB-Q (09:40)
[2023-05-07] MEDS: ONDANSETRON INJ 4 MG/2 ML VIAL IV PUSH (09:40)
[2023-05-07 12:01] LABS: Glucose Point of Care 109 mg/dl (65-105)
[2023-05-07 14:20] VITALS: BP 145/93; PULSE 73; RESP 18; TEMP 37.5; O2SAT 93
--- NOTE | 2023-05-07 15:18 | PM.IMPN ---
Progress Note: A&P Assessment and Plan (1) Cholecystitis with cholelithiasis: Code(s): K80.10 - Calculus of gallbladder with chronic cholecystitis without obstruction Status: Acute Assessment and Plan: 05/06/2023: the patient presented to the emergency department for evaluation of right-sided pain and nausea Upper quadrant ultrasound showed a stone in the gallbladder neck and his history seems consistent with developing cholecystitis with cholelithiasis. general surgery consulted He has been started on Zosyn. LFTs are all normal. Started on clear liquid and being advanced however did not tolerate advancement. Now plan for interval cholecystectomy on 05/08/2023 at 12:30 p.m.. Continue IV fluid and IV Zosyn as ordered. (2) Essential (primary) hypertension: Code(s): I10 - Essential (primary) hypertension Status: Chronic Assessment and Plan: monitor blood pressures. (3) Dyslipidemia: Code(s): E78.5 - Hyperlipidemia, unspecified Status: Chronic Assessment and Plan: Hold atorvastatin for now. (4) Prediabetes: Code(s): R73.03 - Prediabetes Status: Acute Assessment and Plan: Monitor blood sugars. Subjective Date/time seen: 05/07/23 15:18 Interval history: Patient doing well and awaiting surgery tomorrow. Patient plans to be discharged back home for his to help take care of him. He is still tolerating his diet well and eating full liquids up until the surgery. Does have intermittent left upper quadrant pain but it is well controlled. Review of Systems Review of Systems: All systems reviewed & are unremarkable except as noted in HPI and below Exam Narrative: GENERAL: Comfortable, no acute distress HENMT: moist mucous membranes EYES: EOM intact b/l NECK: no lymphadenopathy RESPIRATORY: clear to auscultation CARDIO: RRR GI: soft, Left upper quadrant tenderness, bowel sounds present SKIN: no rashes EXTREMITIES: no edema, redness or tenderness Objective Data Vital Signs Vital Signs: Vital Signs - 24 hr 05/06/23 20:50 05/07/23 06:14 05/07/23 14:20 Temperature 98.3 F 98.6 F 99.5 F Pulse Rate 79 72 73 Respiratory Rate 18 16 18 Blood Pressure 148/99 H 143/87 H 145/93 H Pulse Oximetry 92 96 93 Intake/Output Intake/Output: Intake & Output 05/04/23 05/05/23 05/06/23 05/07/23 23:59 23:59 23:59 23:59 Intake Total 1300 1440 2250 1410 Output Total 300 200 300 Balance 1300 1140 2050 1110 Meds/Results Medications: Active Medications Generic Name Dose Route Start Last Admin Trade Name Freq PRN Reason Stop Dose Admin Dextrose 12.5 gm 05/05/23 14:16 Dextrose 50% 25 Gm/50 Ml Syringe IV PUSH PRN PRN Hypoglycemia Protocol Enoxaparin Sodium 30 mg 05/07/23 09:00 05/07/23 09:40 Enoxaparin 30 Mg/0.3 Ml Syringe SUB-Q 30 mg DAILY JORDON Administration Fentanyl Citrate 12.5 mcg 05/04/23 15:23 Fentanyl Citrate Inj (*Crx) 100 Mcg/2 Ml Vial IV PUSH Q2H PRN Pain Rated 4-6 Fentanyl Citrate 25 mcg 05/04/23 15:23 05/05/23 22:32 Fentanyl Citrate Inj (*Crx) 100 Mcg/2 Ml Vial IV PUSH 25 mcg Q2H PRN Administration Pain Rated 7-10 Glucagon 1 mg 05/05/23 14:16 Glucagon For Inj 1 Mg Vial IM PRN PRN Hypoglycemia Protocol Glucose 15 gm 05/05/23 14:16 Glucose Oral Gel 15 Gm Of Glucse In 37.5 Gm Tube PO PRN PRN Hypoglycemia Protocol Piperacillin/Tazobactam/Dextrose 3.375 gm in 50 mls @ 100 mls/hr 05/04/23 18:00 05/07/23 12:44 Zosyn 3.375 Gm/Ns 50 Ml IVPB 100 mls/hr Q6HR JORDON Administration Sodium Chloride 1,000 mls @ 85 mls/hr 05/04/23 13:15 05/07/23 06:43 Normal Saline Iv IV CONT 85 mls/hr .[id number] JORDON Administration Ibuprofen 800 mg in 200 mls @ 400 mls/hr 05/04/23 15:23 05/05/23 09:38 Caldolor 800 Mg/200 Ml IVPB 400 mls/hr Q6H PRN Administration Pain Rated 1-3 Dextros
--- NOTE | 2023-05-07 16:05 | PM.PNGS ---
Progress Note: A&P Assessment and Plan (1) Cholecystitis with cholelithiasis: Qualifiers: Cholelithiasis location: gallbladder Cholecystitis acuity: acute and chronic Biliary obstruction: without biliary obstruction Qualified Code(s): K80.12 - Calculus of gallbladder with acute and chronic cholecystitis without obstruction Code(s): K80.10 - Calculus of gallbladder with chronic cholecystitis without obstruction Status: Acute Assessment and Plan: Patient still having pain and has poor appetite, only taking liquids intermittently. Plan to go ahead with laparoscopic cholecystectomy tomorrow. Patient is was present today as well. All questions were answered. We have had thorough discussions about the surgery previously. I explained that he will stay in the hospital over night at least following his surgery. I also explained he may have a surgical drain in after the surgery. He understands and agrees to go ahead. Surgery is scheduled at 12:30 p.m. tomorrow. Subjective Subjective Date/Time Seen: 05/07/23 16:05 Patient reports: still having pain, tolerating liquids well (Solid food causes his right upper quadrant pain to recur. He is taking mostly small amounts of liquids.), bowel movement and afebrile Review of Systems Review of Systems: All systems reviewed & are unremarkable except as noted in HPI and below (HPI and those items noted below) Constitutional: Constitutional: Denies chills and Denies fever(s) Cardiovascular: Cardiovascular: Denies chest pain, Denies diaphoresis, Denies dyspnea and Denies paroxysmal nocturnal dyspnea Respiratory: Respiratory: Denies chest congestion, Denies cough and Denies dyspnea Integumentary/Breasts: Skin/Breast: Denies lesions and Denies rash Exam Const: General: comfortable and no acute distress Orientation/consciousness: patient oriented x3 GI: Inspection: normal to inspection and non-distended GI Palp: Yes Soft to palpation, No Tenderness to palpation present (GI), No Guarding due to palpation present (GI), No Palpable mass present and No Rebound tenderness present Neuro: General: patient oriented x3 and no focal motor deficits Extrem: General: no calf tenderness and no edema Psych: Affect: normal affect Insight: Good insight present (Psych) Judgement: Good judgement present (Psych) Objective Data Vital Signs Vital Signs: Vital Signs - 24 hr 05/06/23 20:50 05/07/23 06:14 05/07/23 14:20 Temperature 36.8 C 37.0 C 37.5 C Pulse Rate 79 72 73 Respiratory Rate 18 16 18 Blood Pressure 148/99 H 143/87 H 145/93 H Pulse Oximetry 92 96 93 Intake/Output Intake/Output: Intake & Output 05/04/23 05/05/23 05/06/23 05/07/23 23:59 23:59 23:59 23:59 Intake Total 1300 1440 2250 1410 Output Total 300 200 300 Balance 1300 1140 2050 1110 Meds/Results Medications: Active Medications Generic Name Dose Route Start Last Admin Trade Name Freq PRN Reason Stop Dose Admin Dextrose 12.5 gm 05/05/23 14:16 Dextrose 50% 25 Gm/50 Ml Syringe IV PUSH PRN PRN Hypoglycemia Protocol Enoxaparin Sodium 30 mg 05/07/23 09:00 05/07/23 09:40 Enoxaparin 30 Mg/0.3 Ml Syringe SUB-Q 30 mg DAILY JORDON Administration Fentanyl Citrate 12.5 mcg 05/04/23 15:23 Fentanyl Citrate Inj (*Crx) 100 Mcg/2 Ml Vial IV PUSH Q2H PRN Pain Rated 4-6 Fentanyl Citrate 25 mcg 05/04/23 15:23 05/05/23 22:32 Fentanyl Citrate Inj (*Crx) 100 Mcg/2 Ml Vial IV PUSH 25 mcg Q2H PRN Administration Pain Rated 7-10 Glucagon 1 mg 05/05/23 14:16 Glucagon For Inj 1 Mg Vial IM PRN PRN Hypoglycemia Protocol Glucose 15 gm 05/05/23 14:16 Glucose Oral Gel 15 Gm Of Glucse In 37.5 Gm Tube PO PRN PRN Hypoglycemia Protocol Piperacillin/Tazobactam/Dextrose 3.375 gm in 50 mls @ 100 mls/hr 05/04/23 18:00 05/07/23 12:44 Zosyn 3.375 Gm/Ns 50 Ml IVPB 100 mls/hr Q6HR JORDON Administration Sodiu
[2023-05-07 16:45] LABS: Glucose Point of Care 87 mg/dl (65-105)
[2023-05-07 19:50] VITALS: BP 172/86; PULSE 55; RESP 16; TEMP 36.3; O2SAT 97
[2023-05-07 21:13] LABS: Glucose Point of Care 118 mg/dl (65-105)
[2023-05-07 22:01] LABS: IFOB Positive Control Positive; Immunochemical Fecal Occult Bl Negative (N)
[2023-05-07 23:17] VITALS: BP 158/62
[2023-05-08] VITALS (12 sets, daily range): BP systolic 99–161; BP diastolic 71–104; PULSE 50–100; RESP 12–20; TEMP 36.4–37.4; O2SAT 92–96
[2023-05-08] MEDS: SODIUM CHLORIDE 0.9% IV 1,000 ML 85 ML IV CONT (05:10)
[2023-05-08] MEDS: PIPERACILLN/TAZ 3.375GM/NS50ML 3.375 GM/50 ML BAG IVPB ×4 (05:10→22:50)
[2023-05-08] MEDS: ONDANSETRON INJ 4 MG/2 ML VIAL IV PUSH ×3 (05:19→15:49)
[2023-05-08 06:34] LABS: Basophils Absolute Auto 0.1 K/mm3 (0.0-0.1); Basophils Percent Auto 0.9 % (0.2-1.2); Eosinophils Absolute Auto 0.4 K/mm3 (0-0.3); Eosinophils Percent Auto 5.1 % (0-4.4); Hematocrit 38.5 % (42.0-52.0); Immature Granulocyte Absolute 0.03 K/mm3 (0.00-0.031); Immature Granulocyte Percent A 0.4 % (0-0.5); Lymphocytes Absolute Auto 1.92 K/mm3 (0.9-3.2); Lymphocytes Percent Auto 24.3 % (18.3-44.2); Mean Corpuscular HGB Conc 31.2 g/dl (32-36); Mean Corpuscular Hemoglobin 30.4 pg (26-34); Mean Corpuscular Volume 97.5 fl (80-100); Monocytes Absolute Auto 0.7 K/mm3 (0.1-0.6); Monocytes Percent Auto 8.3 % (2.6-8.5); Neutrophils Absolute Auto 4.8 K/mm3 (1.3-6.7); Platelet Count Result 232 k/mm3 (150-375); Red Blood Count 3.95 M/mm3 (4.6-6.20); Red Cell Distribution Width 13.8 % (11.5-14.5); White Blood Count 7.9 K/mm3 (4.5-10.0)
[2023-05-08 06:48] LABS: Alanine Aminotransferase 22 U/L (6-50); Albumin Level 3.4 g/dL (3.5-5.1); Alkaline Phosphatase 62 U/L (38-126); Anion Gap 9 mmol/L (8-16); Aspartate Amino Transferase 26 U/L (17-59); Bilirubin,Total 0.6 mg/dL (0.2-1.3); Blood Urea Nitrogen 13 mg/dL (9-20); Calcium 7.8 mg/dL (8.4-10.2); Carbon Dioxide 23 mmol/L (22-30); Chloride 109 mmol/L (98-107); Estimated CRCL calculation 47 ml/min; Estimated Glomerular Filt Rate > 60; Glucose 94 mg/dL (65-110); Potassium 3.6 mmol/L (3.4-5.0); Sodium 141 mmol/L (137-145)
[2023-05-08 08:15] LABS: Glucose Point of Care 95 mg/dl (65-105)
--- NOTE | 2023-05-08 11:35 | PC.NURSE ---
Patient to OR via stretcher at 11:00.
[2023-05-08] MEDS: LACTATED RINGERS 1,000 ML 30 ML IV CONT ×2 (11:40→14:31)
--- NOTE | 2023-05-08 12:07 | WPDANESEPPF ---
Anes - Initial Pre Proc Eval Procedure: Operation Date: 05/08/23 12:30 Proposed Procedures p Laparoscopic Cholecystectomy - Cesar Duong MD Date/Time: 05/08/23 12:07 Surgeon: Macho Jennings MD Pre Op Diagnosis: Cholecystitis Patient Data Age: 87 Gender: M Height: 1.75 m Weight: 85.616 kg Last Vital Signs Temp 37.2 C 05/08/23 11:33 Pulse 57 L 05/08/23 11:33 Resp 16 05/08/23 11:33 BP 154/104 H 05/08/23 11:33 Pulse Ox 96 05/08/23 11:33 O2 Del Method Room Air 05/08/23 11:33 Allergies Allergy/AdvReac Type Severity Reaction Status Date / Time Sulfa (Sulfonamide Allergy Unknown Rash Verified 05/08/23 11:32 Antibiotics) Home Medications Medication Instructions Recorded Confirmed Type aspirin 81 mg tablet,delayed 81 mg PO DAILY 05/04/23 05/04/23 History release atorvastatin 20 mg tablet 20 mg PO DAILY 05/04/23 05/04/23 History metformin 500 mg tablet,extended 500 mg PO DAILY 05/04/23 05/04/23 History release 24 hr potassium chloride 20 mEq 20 meq PO DAILY 05/04/23 05/04/23 History tablet,extended release Laboratory Tests 05/07/23 05/07/23 05/07/23 16:31 19:54 19:56 WBC RBC Hgb Hct MCV MCH MCHC RDW Plt Count MPV Immature Gran % (Auto) Neut % (Auto) Lymph % (Auto) Love % (Auto) Eos % (Auto) Baso % (Auto) Lymph # (Auto) Love # (Auto) Eos # (Auto) Baso # (Auto) Abs Immat Gran (auto) Absolute Neuts (auto) Absolute Nucleated RBC Nucleated RBC % Sodium Potassium Chloride Carbon Dioxide Anion Gap BUN Creatinine Estim Creat Clear Calc Estimated GFR Glucose POC Capillary Glucose 87 mg/dl 118 H mg/dl (65-105) (65-105) Calcium Total Bilirubin AST ALT Alkaline Phosphatase Total Protein Albumin Stl Occult Blood (IFOB) Negative (N) 05/08/23 05/08/23 06:00 08:07 WBC 7.9 K/mm3 (4.5-10.0) RBC 3.95 L M/mm3 (4.6-6.20) Hgb 12.0 L g/dL (14.0-18.0) Hct 38.5 L % (42.0-52.0) MCV 97.5 fl (80-100) MCH 30.4 pg (26-34) MCHC 31.2 L g/dl (32-36) RDW 13.8 % (11.5-14.5) Plt Count 232 k/mm3 (150-375) MPV 10.0 fl (7.4-10.4) Immature Gran % (Auto) 0.4 % (0-0.5) Neut % (Auto) 61.0 % (45.5-73.1) Lymph % (Auto) 24.3 % (18.3-44.2) Love % (Auto) 8.3 % (2.6-8.5) Eos % (Auto) 5.1 H % (0-4.4) Baso % (Auto) 0.9 % (0.2-1.2) Lymph # (Auto) 1.92 K/mm3 (0.9-3.2) Love # (Auto) 0.7 H K/mm3 (0.1-0.6) Eos # (Auto) 0.4 H K/mm3 (0-0.3) Baso # (Auto) 0.1 K/mm3 (0.0-0.1) Abs Immat Gran (auto) 0.03 K/mm3 (0.00-0.031) Absolute Neuts (auto) 4.8 K/mm3 (1.3-6.7) Absolute Nucleated RBC 0.0 K/mm3 (0.0-0.012) Nucleated RBC % 0.0 % (0.0-0.2) Sodium 141 mmol/L (137-145) Potassium 3.6 mmol/L (3.4-5.0) Chloride 109 H mmol/L (98-107) Carbon Dioxide 23 mmol/L (22-30) Anion Gap 9 mmol/L (8-16) BUN 13 mg/dL (9-20) Creatinine 1.00 mg/dL (0.7-1.3) Estim Creat Clear Calc 47 ml/min Estimated GFR > 60 (59 - ) Glucose 94 mg/dL (65-110) POC Capillary Glucose 95 mg/dl (65-105) Calcium 7.8 L mg/dL (8.4-10.2) Total Bilirubin 0.6 mg/dL (0.2-1.3) AST 26 U/L (17-59) ALT 22 U/L (6-50) Alkaline Phosphatase 62 U/L (38-126) Total Protein 7.0 g/dL
--- NOTE | 2023-05-08 12:31 | WPDHPUPDATE1 ---
History and Physical Update Update Date/Time: 05/08/23 12:31 History and Physical has been reviewed, including an updated exam of the patient. There are NO changes in the patient's condition. Risks, benefits, and alternatives have been discussed and questions answered. Patient agrees to proceed with procedure.
[2023-05-08] MEDS: BUPIVACAINE/EPINEPHRINE 0.25% 50 ML VIAL 30 ML INFILTRATE (13:10)
--- NOTE | 2023-05-08 15:00 | W.PM.PROC2 ---
Procedure Note - Detailed Date of Procedure 05/08/23 Pre-op Diagnosis Cholecystitis with cholelithiasis Post-op Diagnosis Other (Acute and chronic cholecystitis, cholelithiasis) Procedure Performed Laparoscopic cholecystectomy Surgeon Cesar Duong MD [employer] Event [employer] Assistant María Elena LOYA Anesthesia General and Local (0.5% Marcaine with epinephrine) Indications Patient is an 87-year-old man who came to the emergency room 4 days ago with right upper quadrant abdominal pain and vomiting after eating a pork tenderloin. His ultrasound showed an opacity in the distal gallbladder or cystic duct. Initially is pain improved but then was recurrent. He continued to have pain and poor appetite. He has been on IV Zosyn antibiotics. He is taken to surgery now for laparoscopic cholecystectomy for cholecystitis with gallstones. Findings Patient had severe cholecystitis with purulent fluid in the gallbladder. He had several stones in the gallbladder wall was very thickened. There were a lot of fibrotic changes around the gallbladder and the peritoneum was quite thickened as well. Adhesions in the cholecystohepatic triangle were very dense due to chronic inflammation. The gallbladder wall was erythematous with some changes of gangrene. The surgery was exceptionally difficult. An extra 5 mm port had to be placed in the left upper quadrant to facilitate retraction of the duodenum and right colon and visualize the cholecystohepatic triangle. We were unable to retract the gallbladder adequately due to some fatty liver changes and the friability of the gallbladder. Blood loss was 100 cc which is 5-10 times more than is typical for this type of surgery. We had to place a drain in the right upper quadrant due to the purulent bile and spillage with bleeding from the gallbladder fossa and liver bed that occurred during the surgery making the risk of postoperative infection higher. Description of Procedure Patient was taken to surgery and induced into general anesthesia. The abdomen is prepped and draped. Trocars were placed in the usual fashion using applied Medical optical trocars and a 5 mm camera. After the initial 4 trocars were placed we reviewed the right upper quadrant. There was edema and adhesions to the gallbladder and also to the anterior abdominal wall. These were inflammatory adhesions. These adhesions were taken down using blunt and sharp dissection. Once the fundus of the gallbladder was exposed, a laparoscopic aspirator was placed and the gallbladder was decompressed. Dark green tinged bile came from the gallbladder. It decompressed fairly well. The gallbladder wall was so thickened it was not necessary to close the cholecystotomy with an endoloop. We then tried to grasp the gallbladder but the fundus was very friable and we could only retracted a small amount with out tearing the gallbladder. We then took down adhesions over the the lower half of the gallbladder. There was oozing of blood taking down these adhesions consistent with the inflammation and hypervascularity. As we freed the gallbladder from adhesions, we regrasped the gallbladder and were able to retract it more anterosuperiorly. In the area of the triangle cuff Calot, there were many adhesions and they were extremely dense. It was difficult to expose the triangle of Calot. A 5th trocar was placed in the left mid abdomen. This was a another 5 mm trocar. A laparoscopic Kittner was used and the duodenum hand transverse colon were retracted posteriorly to expose the area. In trying to take down some of these adhesions, the adhesions actually tore some of the liver surface of the medial aspect of the left lobe of the liver. This bleeding was controlled with cautery. I then went back and took down few more these adhesions sharply and eventually was able to expose most of the cholecystohepatic triangle. In trying to dissect the medial aspect of the gallbladder, the liver did tend to tear at the edges
--- NOTE | 2023-05-08 15:05 | SUR.PHASEI ---
Addendum entered by Kaylee Longoria RN 05/08/23 15:22: Gave report to 3 Med/medic technician and updated on patient's heart rhythm. 2 Med/medic technician stated patient has chronic history of Afib. Original Note: Notified Dr. Trevino of patient's new onset of AFib with heart rate in the 50's. No new orders received at this time.
[2023-05-08] MEDS: LACTATED RINGERS 1,000 ML 100 ML IV CONT (15:49)
--- NOTE | 2023-05-08 15:57 | PM.IMPN ---
Progress Note: A&P Assessment and Plan (1) Cholecystitis with cholelithiasis: Qualifiers: Cholelithiasis location: gallbladder Cholecystitis acuity: acute and chronic Biliary obstruction: without biliary obstruction Qualified Code(s): K80.12 - Calculus of gallbladder with acute and chronic cholecystitis without obstruction Code(s): K80.10 - Calculus of gallbladder with chronic cholecystitis without obstruction Status: Acute Assessment and Plan: 05/06/2023: the patient presented to the emergency department for evaluation of right-sided pain and nausea Upper quadrant ultrasound showed a stone in the gallbladder neck and his history seems consistent with developing cholecystitis with cholelithiasis. general surgery consulted He has been started on Zosyn. LFTs are all normal. Started on clear liquid and being advanced however did not tolerate advancement. cholecystectomy on 05/08/2023 at 12:30 p.m.. Continue IV fluid and IV Zosyn as ordered. (2) Essential (primary) hypertension: Code(s): I10 - Essential (primary) hypertension Status: Chronic Assessment and Plan: monitor blood pressures. (3) Dyslipidemia: Code(s): E78.5 - Hyperlipidemia, unspecified Status: Chronic Assessment and Plan: Hold atorvastatin for now. (4) Prediabetes: Code(s): R73.03 - Prediabetes Status: Acute Assessment and Plan: Monitor blood sugars. Subjective Date/time seen: 05/08/23 15:58 Interval history: Patient resting comfortably in bed. He is scheduled to have lap choly later today. He still has some abdominal pain with moving but it is well controlled. Discussed with him that he will likely stay overnight tonight and possibly discharge tomorrow if he tolerates his diet well and pain is well controlled. He verbalizes understanding. Review of Systems Review of Systems: All systems reviewed & are unremarkable except as noted in HPI and below Exam Narrative: GENERAL: Comfortable, no acute distress HENMT: moist mucous membranes EYES: EOM intact b/l NECK: no lymphadenopathy RESPIRATORY: clear to auscultation CARDIO: RRR GI: soft, Left upper quadrant tenderness, bowel sounds present SKIN: no rashes EXTREMITIES: no edema, redness or tenderness Objective Data Vital Signs Vital Signs: Vital Signs - 24 hr 05/07/23 19:50 05/07/23 20:00 05/07/23 23:17 Temperature 97.3 F L Pulse Rate 55 L Respiratory Rate 16 Blood Pressure 172/86 H 158/62 H Pulse Oximetry 97 Oxygen Delivery Room Air Oxygen Flow Rate 05/08/23 06:16 05/08/23 08:00 05/08/23 11:33 Temperature 98.3 F 99.0 F Pulse Rate 71 57 L Respiratory Rate 16 16 Blood Pressure 158/93 H 154/104 H Pulse Oximetry 96 96 Oxygen Delivery Room Air Room Air Oxygen Flow Rate 05/08/23 14:31 05/08/23 14:45 05/08/23 15:00 Temperature 98.1 F Pulse Rate 58 L 54 L 52 L Respiratory Rate 20 18 20 Blood Pressure 99/73 L 159/79 H Pulse Oximetry 92 92 93 Oxygen Delivery Simple Face Mask Nasal Cannula Nasal Cannula Oxygen Flow Rate 8 3 3 05/08/23 15:15 Temperature Pulse Rate 50 L Respiratory Rate 12 Blood Pressure 153/71 H Pulse Oximetry 93 Oxygen Delivery Nasal Cannula Oxygen Flow Rate 3 Intake/Output Intake/Output: Intake & Output 05/05/23 05/06/23 05/07/23 05/08/23 23:59 23:59 23:59 23:59 Intake Total 1440 2250 3100 1200 Output Total 300 093 861 9035 Balance 1140 2050 2800 200 Meds/Results Medications: Active Medications Generic Name Dose Route Start Last Admin Trade Name Freq PRN Reason Stop Dose Admin Acetaminophen 500 mg 05/08/23 15:32 Acetaminophen 500 Mg Tablet PO Q6H PRN Mild Pain (1-3) or Fever Hydrocodone Bitart/Acetaminophen 1 tab 05/08/23 15:32 Hydrocodone/Acetaminophen (*Crx) 5-325 Mg Tablet PO Q4H PRN Pain Rated 4-6 Hydrocodone Bitart/Acetaminophen 1 tab 05/08/23 15:
[2023-05-08 17:24] LABS: Glucose Point of Care 117 mg/dl (65-105)
[2023-05-08] MEDS: HYDROcodone/acetaminophen (*CRX) 7.5-325 MG TABLET 1 TAB PO ×2 (18:31→22:50)
[2023-05-08 20:38] LABS: Glucose Point of Care 143 mg/dl (65-105)
[2023-05-08] MEDS: FAMOTIDINE 20 MG TABLET PO (21:00)
[2023-05-09] VITALS (7 sets, daily range): BP systolic 147–158; BP diastolic 83–94; PULSE 70–96; RESP 14–18; TEMP 36.4–37.3; O2SAT 89–95
[2023-05-09 07:46] LABS: Hematocrit 36.5 % (42.0-52.0); Hemoglobin 11.5 g/dL (14.0-18.0); Mean Corpuscular HGB Conc 31.5 g/dl (32-36); Mean Corpuscular Hemoglobin 30.9 pg (26-34); Mean Corpuscular Volume 98.1 fl (80-100); Platelet Count Result 268 k/mm3 (150-375); Red Blood Count 3.72 M/mm3 (4.6-6.20); Red Cell Distribution Width 13.7 % (11.5-14.5); White Blood Count 7.6 K/mm3 (4.5-10.0)
[2023-05-09 08:06] LABS: Alanine Aminotransferase 40 U/L (6-50); Albumin Level 3.1 g/dL (3.5-5.1); Alkaline Phosphatase 51 U/L (38-126); Anion Gap 10 mmol/L (8-16); Aspartate Amino Transferase 56 U/L (17-59); Bilirubin,Total 0.5 mg/dL (0.2-1.3); Blood Urea Nitrogen 15 mg/dL (9-20); Calcium 7.6 mg/dL (8.4-10.2); Carbon Dioxide 24 mmol/L (22-30); Chloride 104 mmol/L (98-107); Estimated CRCL calculation 47 ml/min; Estimated Glomerular Filt Rate > 60; Glucose 147 mg/dL (65-110); Potassium 3.7 mmol/L (3.4-5.0); Sodium 138 mmol/L (137-145)
[2023-05-09 08:38] LABS: Glucose Point of Care 138 mg/dl (65-105)
[2023-05-09] MEDS: ENOXAPARIN 30 MG/0.3 ML SYRINGE SUB-Q (10:17)
[2023-05-09] MEDS: FAMOTIDINE 20 MG TABLET PO ×2 (10:19→20:05)
[2023-05-09 12:17] LABS: Glucose Point of Care 143 mg/dl (65-105)
--- NOTE | 2023-05-09 13:29 | PM.PNGS ---
Progress Note: A&P Assessment and Plan (1) Cholelithiasis with acute on chronic cholecystitis without biliary obstruction: Code(s): K80.12 - Calculus of gallbladder with acute and chronic cholecystitis without obstruction Status: Acute Assessment and Plan: Patient had purulent bile and some intra-abdominal spillage. Discussed with Infectious Disease pharmacist. Would prefer to keep on IV Zosyn for now and keep drain in place. He is still pretty uncomfortable following surgery and for that reason also would like to continue in the hospital for at least another day or 2. Seems to be doing well but not ready for discharge. Advanced to low-fiber diet. No evidence of bile leak in ORESTES drain fluid Subjective Subjective Date/Time Seen: 05/09/23 13:29 Post Op day: 1 Patient reports: still having pain (Still pretty sore from difficult laparoscopic cholecystectomy yesterday.), tolerating liquids well (Has been advanced to low-fiber diet), no bowel movement and afebrile Exam Const: General: comfortable, no acute distress, alert, awake and well nourished GI: Inspection: incision (Incisions dry and healing well) and other (ORESTES drain is shows serosanguineous output) GI Palp: Yes Soft to palpation, Yes Tenderness to palpation present (GI) (Specially right side of abdomen), Yes Guarding due to palpation present (GI) and No Rebound tenderness present Auscultation: Hypoactive bowel sounds present Neuro: General: no focal motor deficits Extrem: General: no calf tenderness and no edema Psych: Affect: normal affect Insight: Good insight present (Psych) Judgement: Good judgement present (Psych) Objective Data Vital Signs Vital Signs: Vital Signs - 24 hr 05/08/23 14:31 05/08/23 14:45 05/08/23 15:00 Temperature 36.7 C Pulse Rate 58 L 54 L 52 L Respiratory Rate 20 18 20 Blood Pressure 99/73 L 159/79 H Pulse Oximetry 92 92 93 Oxygen Delivery Simple Face Mask Nasal Cannula Nasal Cannula Oxygen Flow Rate 8 3 3 05/08/23 15:15 05/08/23 16:00 05/08/23 16:15 Temperature 36.4 C L 36.4 C Pulse Rate 50 L 100 96 Respiratory Rate 12 16 16 Blood Pressure 153/71 H 148/99 H 138/88 Pulse Oximetry 93 96 96 Oxygen Delivery Nasal Cannula Oxygen Flow Rate 3 05/08/23 16:45 05/08/23 18:11 05/08/23 18:25 Temperature 36.6 C 36.5 C Pulse Rate 87 77 Respiratory Rate 16 16 Blood Pressure 134/86 153/93 H Pulse Oximetry 96 95 93 Oxygen Delivery Room Air Oxygen Flow Rate 05/08/23 20:00 05/08/23 20:00 05/09/23 00:05 Temperature 37.4 C 36.9 C Pulse Rate 75 77 Respiratory Rate 16 14 Blood Pressure 161/91 H 158/87 H Pulse Oximetry 94 93 Oxygen Delivery Room Air Oxygen Flow Rate 05/09/23 04:00 05/09/23 10:30 Temperature 37.3 C 36.7 C Pulse Rate 74 76 Respiratory Rate 16 16 Blood Pressure 150/83 H 151/93 H Pulse Oximetry 90 95 Oxygen Delivery Oxygen Flow Rate Intake/Output Intake/Output: Intake & Output 05/06/23 05/07/23 05/08/23 05/09/23 23:59 23:59 23:59 23:59 Intake Total 2250 3100 1470 560 Output Total 634 201 4308 85 Balance 2050 2800 445 475 Meds/Results Medications: Active Medications Generic Name Dose Route Start Last Admin Trade Name Freq PRN Reason Stop Dose Admin Acetaminophen 500 mg 05/08/23 15:32 Acetaminophen 500 Mg Tablet PO Q6H PRN Mild Pain (1-3) or Fever Hydrocodone Bitart/Acetaminophen 1 tab 05/08/23 15:32 Hydrocodone/Acetaminophen (*Crx) 5-325 Mg Tablet PO Q4H PRN Pain Rated 4-6 Hydrocodone Bitart/Acetaminophen 1 tab 05/08/23 15:32 05/08/23 22:50 Hydrocodone/Acetaminophen (*Crx) 7.5-325 Mg Tablet PO 1 tab Q4H PRN Administration Pain Rated 7-10 Dextrose 12.5 gm 05/05/23 14:16 Dextrose 50% 25 Gm/50 Ml Syringe IV PUSH PRN PRN Hypoglycemia Protocol Enoxaparin Sodium 30 mg 05/07/23 09:00 05/09/23 10:17 Enoxaparin 30 Mg/0.3 Ml Syringe SUB-Q 30 mg DAILY [facility] Administratio
--- NOTE | 2023-05-09 15:28 | PM.IMPN ---
Progress Note: A&P Assessment and Plan (1) Cholecystitis with cholelithiasis: Qualifiers: Cholelithiasis location: gallbladder Cholecystitis acuity: acute and chronic Biliary obstruction: without biliary obstruction Qualified Code(s): K80.12 - Calculus of gallbladder with acute and chronic cholecystitis without obstruction Code(s): K80.10 - Calculus of gallbladder with chronic cholecystitis without obstruction Status: Inactive Assessment and Plan: 05/06/2023: the patient presented to the emergency department for evaluation of right-sided pain and nausea Upper quadrant ultrasound showed a stone in the gallbladder neck and his history seems consistent with developing cholecystitis with cholelithiasis. general surgery consulted He has been started on Zosyn. LFTs are all normal. Started on clear liquid and being advanced however did not tolerate advancement. cholecystectomy pod 1 Continue IV fluid and IV Zosyn as ordered. (2) Essential (primary) hypertension: Code(s): I10 - Essential (primary) hypertension Status: Chronic Assessment and Plan: monitor blood pressures. (3) Dyslipidemia: Code(s): E78.5 - Hyperlipidemia, unspecified Status: Chronic Assessment and Plan: Hold atorvastatin for now. (4) Prediabetes: Code(s): R73.03 - Prediabetes Status: Acute Assessment and Plan: Monitor blood sugars. Subjective Date/time seen: 05/09/23 15:28 Interval history: surgery like he patient for 1 or 2 more nights due to the extent of the surgery and patient still having some abdominal pain. Would like to monitor patient for a little longer before he can be discharged. Will continue IV antibiotics for now but hope to deescalate soon. He is tolerating food well but has some abdominal discomfort with movement. Exam Narrative: GENERAL: Comfortable, no acute distress HENMT: moist mucous membranes EYES: EOM intact b/l NECK: no lymphadenopathy RESPIRATORY: clear to auscultation CARDIO: RRR GI: soft, Left upper quadrant tenderness, bowel sounds present; ORESTES drain with yellow fluid draining, abdominal incisions healing well without pus or drainage SKIN: no rashes EXTREMITIES: no edema, redness or tenderness Objective Data Vital Signs Vital Signs: Vital Signs - 24 hr 05/08/23 16:00 05/08/23 16:15 05/08/23 16:45 Temperature 97.5 F L 97.6 F 97.8 F Pulse Rate 100 96 87 Respiratory Rate 16 16 16 Blood Pressure 148/99 H 138/88 134/86 Pulse Oximetry 96 96 96 Oxygen Delivery 05/08/23 18:11 05/08/23 18:25 05/08/23 20:00 Temperature 97.7 F Pulse Rate 77 Respiratory Rate 16 Blood Pressure 153/93 H Pulse Oximetry 95 93 Oxygen Delivery Room Air Room Air 05/08/23 20:00 05/09/23 00:05 05/09/23 04:00 Temperature 99.3 F 98.5 F 99.1 F Pulse Rate 75 77 74 Respiratory Rate 16 14 16 Blood Pressure 161/91 H 158/87 H 150/83 H Pulse Oximetry 94 93 90 Oxygen Delivery 05/09/23 10:30 Temperature 98.0 F Pulse Rate 76 Respiratory Rate 16 Blood Pressure 151/93 H Pulse Oximetry 95 Oxygen Delivery Intake/Output Intake/Output: Intake & Output 05/06/23 05/07/23 05/08/23 05/09/23 23:59 23:59 23:59 23:59 Intake Total 2250 3100 1470 560 Output Total 597 289 8219 85 Balance 2050 2800 445 475 Meds/Results Medications: Active Medications Generic Name Dose Route Start Last Admin Trade Name Freq PRN Reason Stop Dose Admin Acetaminophen 500 mg 05/08/23 15:32 Acetaminophen 500 Mg Tablet PO Q6H PRN Mild Pain (1-3) or Fever Hydrocodone Bitart/Acetaminophen 1 tab 05/08/23 15:32 Hydrocodone/Acetaminophen (*Crx) 5-325 Mg Tablet PO Q4H PRN Pain Rated 4-6 Hydrocodone Bitart/Acetaminophen 1 tab 05/08/23 15:32 05/08/23 22:50 Hydrocodone/Acetaminophen (*Crx) 7.5-325 Mg Tablet PO 1 tab Q4H PRN Administration Pain Rated 7-10 Dextrose 12.5 gm 05/05/23
[2023-05-09] MEDS: PIPERACILLN/TAZ 3.375GM/NS50ML 3.375 GM/50 ML BAG IVPB ×2 (16:13→23:54)
[2023-05-09 17:26] LABS: Glucose Point of Care 136 mg/dl (65-105)
[2023-05-09] MEDS: LACTATED RINGERS 1,000 ML 100 ML IV CONT (18:34)
[2023-05-09] MEDS: HYDROcodone/acetaminophen (*CRX) 7.5-325 MG TABLET 1 TAB PO (20:05)
[2023-05-09 22:57] LABS: Glucose Point of Care 143 mg/dl (65-105)
[2023-05-10] MEDS: PIPERACILLN/TAZ 3.375GM/NS50ML 3.375 GM/50 ML BAG IVPB ×3 (05:18→17:26)
[2023-05-10] MEDS: HYDROcodone/acetaminophen (*CRX) 7.5-325 MG TABLET 1 TAB PO ×2 (05:22→12:00)
[2023-05-10] MEDS: ONDANSETRON INJ 4 MG/2 ML VIAL IV PUSH ×2 (05:24→21:18)
[2023-05-10] MEDS: LACTATED RINGERS 1,000 ML 100 ML IV CONT ×2 (05:33→07:52)
[2023-05-10 06:00] VITALS: BP 162/78; PULSE 68; RESP 20; TEMP 37.1; O2SAT 92
[2023-05-10 07:26] LABS: Hematocrit 35.6 % (42.0-52.0); Hemoglobin 11.4 g/dL (14.0-18.0); Mean Corpuscular Hemoglobin 30.8 pg (26-34); Mean Corpuscular Volume 96.2 fl (80-100); Mean Platelet Volume 9.8 fl (7.4-10.4); Platelet Count Result 265 k/mm3 (150-375); Red Cell Distribution Width 13.9 % (11.5-14.5); White Blood Count 8.5 K/mm3 (4.5-10.0)
[2023-05-10 07:30] LABS: Alanine Aminotransferase 33 U/L (6-50); Alkaline Phosphatase 51 U/L (38-126); Anion Gap 6 mmol/L (8-16); Aspartate Amino Transferase 31 U/L (17-59); Bilirubin,Total 0.5 mg/dL (0.2-1.3); Blood Urea Nitrogen 11 mg/dL (9-20); Calcium 7.8 mg/dL (8.4-10.2); Carbon Dioxide 28 mmol/L (22-30); Chloride 104 mmol/L (98-107); Estimated CRCL calculation 47 ml/min; Estimated Glomerular Filt Rate > 60; Glucose 114 mg/dL (65-110); Potassium 3.4 mmol/L (3.4-5.0); Sodium 138 mmol/L (137-145)
[2023-05-10] MEDS: ENOXAPARIN 30 MG/0.3 ML SYRINGE SUB-Q (07:54)
[2023-05-10 07:55] VITALS: PULSE 68; RESP 20; O2SAT 92
[2023-05-10] MEDS: FAMOTIDINE 20 MG TABLET PO ×2 (07:55→21:16)
[2023-05-10 08:26] LABS: Glucose Point of Care 108 mg/dl (65-105)
[2023-05-10 12:01] LABS: Glucose Point of Care 122 mg/dl (65-105)
--- NOTE | 2023-05-10 13:37 | PM.PNGS ---
Progress Note: A&P Assessment and Plan (1) Cholelithiasis with acute on chronic cholecystitis without biliary obstruction: Code(s): K80.12 - Calculus of gallbladder with acute and chronic cholecystitis without obstruction Status: Acute Assessment and Plan: Resolved after recent laparoscopic cholecystectomy. There was purulence within the gallbladder and so the patient remains on IV antibiotics. White blood cell count is normal is afebrile. Drain output is nonbilious. Will continue IV antibiotics for another 24hours. Will reassess tomorrow but perhaps can be discharged home tomorrow on oral antibiotics for another week. Subjective Subjective Date/Time Seen: 05/10/23 13:37 Interval history: Postoperative day 2 after laparoscopic cholecystectomy. Right upper quadrant drain remains in place with output of serosanguineous fluid but no evidence of bile. Tolerating regular diet. Has not had a bowel movement yet. White blood cell count remains normal and he is afebrile. Exam GI: Other: Abdomen is soft and nondistended. Mild tenderness around the port sites which is expected. Right upper quadrant drain output is serosanguineous but no bilious output. Objective Data Vital Signs Vital Signs: Vital Signs - 24 hr 05/09/23 14:30 05/09/23 18:20 05/09/23 20:00 Temperature 36.4 C 36.8 C Pulse Rate 96 70 Respiratory Rate 16 16 Blood Pressure 147/94 H 147/87 H Pulse Oximetry 95 95 Oxygen Delivery Room Air 05/09/23 22:00 05/10/23 06:00 05/10/23 07:55 Temperature 36.8 C 37.1 C Pulse Rate 76 68 68 Respiratory Rate 18 20 20 Blood Pressure 154/94 H 162/78 H Pulse Oximetry 89 L 92 92 Oxygen Delivery Room Air Intake/Output Intake/Output: Intake & Output 05/07/23 05/08/23 05/09/23 05/10/23 23:59 23:59 23:59 23:59 Intake Total 3100 1520 2270 2855 Output Total 300 1025 285 Balance 2800 495 1985 2855 Meds/Results Medications: Active Medications Generic Name Dose Route Start Last Admin Trade Name Freq PRN Reason Stop Dose Admin Acetaminophen 500 mg 05/08/23 15:32 Acetaminophen 500 Mg Tablet PO Q6H PRN Mild Pain (1-3) or Fever Hydrocodone Bitart/Acetaminophen 1 tab 05/08/23 15:32 Hydrocodone/Acetaminophen (*Crx) 5-325 Mg Tablet PO Q4H PRN Pain Rated 4-6 Hydrocodone Bitart/Acetaminophen 1 tab 05/08/23 15:32 05/10/23 12:00 Hydrocodone/Acetaminophen (*Crx) 7.5-325 Mg Tablet PO 1 tab Q4H PRN Administration Pain Rated 7-10 Dextrose 12.5 gm 05/05/23 14:16 Dextrose 50% 25 Gm/50 Ml Syringe IV PUSH PRN PRN Hypoglycemia Protocol Enoxaparin Sodium 30 mg 05/07/23 09:00 05/10/23 07:54 Enoxaparin 30 Mg/0.3 Ml Syringe SUB-Q 30 mg DAILY [facility] Administration Famotidine 20 mg 05/08/23 21:00 05/10/23 07:55 Famotidine 20 Mg Tablet PO 20 mg Q12HR J[facility]ON Administration Fentanyl Citrate 25 mcg 05/08/23 12:08 Fentanyl Citrate Inj (*Crx) 100 Mcg/2 Ml Vial IV PUSH Q2M PRN Pain Glucagon 1 mg 05/05/23 14:16 Glucagon For Inj 1 Mg Vial IM PRN PRN Hypoglycemia Protocol Glucose 15 gm 05/05/23 14:16 Glucose Oral Gel 15 Gm Of Glucse In 37.5 Gm Tube PO PRN PRN Hypoglycemia Protocol Piperacillin/Tazobactam/Dextrose 3.375 gm in 50 mls @ 100 mls/hr 05/04/23 18:00 05/10/23 12:00 Zosyn 3.375 Gm/Ns 50 Ml IVPB 100 mls/hr Q6HR [facility] Administration Ibuprofen 800 mg in 200 mls @ 400 mls/hr 05/04/23 15:23 05/05/23 09:38 Caldolor 800 Mg/200 Ml IVPB 400 mls/hr Q6H PRN Administration Pain Rated 1-3 Dextrose 1,000 mls @ 100 mls/hr 05/05/23 14:16 Dextrose 5% 1,000 Ml IVPB PRN PRN Hypoglycemia Protocol Lactated Ringer's 1,000 mls @ 100 mls/hr 05/08/23 15:32 05/10/23 07:52 Lr - Lactated Ringers Iv IV CONT 100 mls/hr .Q10H J[facility]ON Administration Insulin Aspart 2 - 5 units 05/05/23 17:00 05/10/23 12:06 Insulin Aspart
--- NOTE | 2023-05-10 13:57 | PM.IMPN ---
Progress Note: A&P Assessment and Plan (1) Cholecystitis with cholelithiasis: Qualifiers: Cholelithiasis location: gallbladder Cholecystitis acuity: acute and chronic Biliary obstruction: without biliary obstruction Qualified Code(s): K80.12 - Calculus of gallbladder with acute and chronic cholecystitis without obstruction Code(s): K80.10 - Calculus of gallbladder with chronic cholecystitis without obstruction Status: Inactive Assessment and Plan: 05/06/2023: the patient presented to the emergency department for evaluation of right-sided pain and nausea Upper quadrant ultrasound showed a stone in the gallbladder neck and his history seems consistent with developing cholecystitis with cholelithiasis. general surgery consulted He has been started on Zosyn. LFTs are all normal. Started on clear liquid and being advanced however did not tolerate advancement. cholecystectomy pod 2 Continue IV fluid and IV Zosyn as ordered. (2) Essential (primary) hypertension: Code(s): I10 - Essential (primary) hypertension Status: Chronic Assessment and Plan: monitor blood pressures. (3) Dyslipidemia: Code(s): E78.5 - Hyperlipidemia, unspecified Status: Chronic Assessment and Plan: Hold atorvastatin for now. (4) Prediabetes: Code(s): R73.03 - Prediabetes Status: Acute Assessment and Plan: Monitor blood sugars. Subjective Date/time seen: 05/10/23 13:57 Interval history: Patient doing well today with no new complaints. Per general surgery would like patient to receive another 24 hours of antibiotics and reassessing tomorrow. Possible discharge tomorrow. Review of Systems Review of Systems: All systems reviewed & are unremarkable except as noted in HPI and below Exam Narrative: GENERAL: Comfortable, no acute distress HENMT: moist mucous membranes EYES: EOM intact b/l NECK: no lymphadenopathy RESPIRATORY: clear to auscultation CARDIO: RRR GI: soft, Left upper quadrant tenderness, bowel sounds present; ORESTES drain with yellow fluid draining, abdominal incisions healing well without pus or drainage SKIN: no rashes EXTREMITIES: no edema, redness or tenderness Objective Data Vital Signs Vital Signs: Vital Signs - 24 hr 05/09/23 14:30 05/09/23 18:20 05/09/23 20:00 Temperature 97.6 F 98.2 F Pulse Rate 96 70 Respiratory Rate 16 16 Blood Pressure 147/94 H 147/87 H Pulse Oximetry 95 95 Oxygen Delivery Room Air 05/09/23 22:00 05/10/23 06:00 05/10/23 07:55 Temperature 98.3 F 98.8 F Pulse Rate 76 68 68 Respiratory Rate 18 20 20 Blood Pressure 154/94 H 162/78 H Pulse Oximetry 89 L 92 92 Oxygen Delivery Room Air Intake/Output Intake/Output: Intake & Output 05/07/23 05/08/23 05/09/23 05/10/23 23:59 23:59 23:59 23:59 Intake Total 3100 1520 2270 2855 Output Total 300 1025 285 Balance 2800 495 1985 2855 Meds/Results Medications: Active Medications Generic Name Dose Route Start Last Admin Trade Name Freq PRN Reason Stop Dose Admin Acetaminophen 500 mg 05/08/23 15:32 Acetaminophen 500 Mg Tablet PO Q6H PRN Mild Pain (1-3) or Fever Hydrocodone Bitart/Acetaminophen 1 tab 05/08/23 15:32 Hydrocodone/Acetaminophen (*Crx) 5-325 Mg Tablet PO Q4H PRN Pain Rated 4-6 Hydrocodone Bitart/Acetaminophen 1 tab 05/08/23 15:32 05/10/23 12:00 Hydrocodone/Acetaminophen (*Crx) 7.5-325 Mg Tablet PO 1 tab Q4H PRN Administration Pain Rated 7-10 Dextrose 12.5 gm 05/05/23 14:16 Dextrose 50% 25 Gm/50 Ml Syringe IV PUSH PRN PRN Hypoglycemia Protocol Enoxaparin Sodium 30 mg 05/07/23 09:00 05/10/23 07:54 Enoxaparin 30 Mg/0.3 Ml Syringe SUB-Q 30 mg DAILY [facility] Administration Famotidine 20 mg 05/08/23 21:00 05/10/23 07:55 Famotidine 20 Mg Tablet PO 20 mg Q12HR [facility]ON Administration Fentanyl Citrate 25 mcg 05/08/23 12:08
[2023-05-10 14:45] VITALS: BP 149/95; PULSE 80; RESP 16; TEMP 36.7; O2SAT 95
[2023-05-10 17:05] LABS: Glucose Point of Care 140 mg/dl (65-105)
[2023-05-10 22:00] VITALS: BP 149/97; PULSE 80; RESP 20; TEMP 36.5; O2SAT 91
[2023-05-10 23:00] LABS: Glucose Point of Care 137 mg/dl (65-105)
[2023-05-11] MEDS: PIPERACILLN/TAZ 3.375GM/NS50ML 3.375 GM/50 ML BAG IVPB ×3 (01:25→13:50)
[2023-05-11] MEDS: HYDROcodone/acetaminophen (*CRX) 7.5-325 MG TABLET 1 TAB PO (05:28)
[2023-05-11 06:00] VITALS: BP 162/104; PULSE 73; RESP 20; TEMP 36.6; O2SAT 94
[2023-05-11 06:55] VITALS: BP 170/91; PULSE 85
[2023-05-11 07:18] LABS: Hematocrit 38.3 % (42.0-52.0); Mean Corpuscular HGB Conc 31.3 g/dl (32-36); Mean Corpuscular Hemoglobin 30.6 pg (26-34); Mean Corpuscular Volume 97.7 fl (80-100); Platelet Count Result 322 k/mm3 (150-375); Red Blood Count 3.92 M/mm3 (4.6-6.20); Red Cell Distribution Width 14.2 % (11.5-14.5); White Blood Count 8.4 K/mm3 (4.5-10.0)
[2023-05-11 07:28] LABS: Alanine Aminotransferase 31 U/L (6-50); Albumin Level 3.3 g/dL (3.5-5.1); Alkaline Phosphatase 55 U/L (38-126); Anion Gap 8 mmol/L (8-16); Aspartate Amino Transferase 30 U/L (17-59); Bilirubin,Total 0.4 mg/dL (0.2-1.3); Blood Urea Nitrogen 11 mg/dL (9-20); Carbon Dioxide 30 mmol/L (22-30); Chloride 102 mmol/L (98-107); Estimated CRCL calculation 43 ml/min; Estimated Glomerular Filt Rate > 60; Glucose 121 mg/dL (65-110); Potassium 3.3 mmol/L (3.4-5.0); Sodium 140 mmol/L (137-145)
[2023-05-11 07:43] VITALS: O2SAT 96
[2023-05-11 08:19] LABS: Glucose Point of Care 130 mg/dl (65-105)
[2023-05-11] MEDS: FAMOTIDINE 20 MG TABLET PO (08:23)
[2023-05-11] MEDS: ENOXAPARIN 30 MG/0.3 ML SYRINGE SUB-Q (08:27)
[2023-05-11] MEDS: POTASSIUM CHLORIDE 20 MEQ ER TABLET PO (08:27)
[2023-05-11] MEDS: ACETAMINOPHEN 500 MG TABLET PO (08:27)
--- NOTE | 2023-05-11 11:55 | PM.IMPN ---
Progress Note: A&P Assessment and Plan (1) Cholecystitis with cholelithiasis: Qualifiers: Cholelithiasis location: gallbladder Cholecystitis acuity: acute and chronic Biliary obstruction: without biliary obstruction Qualified Code(s): K80.12 - Calculus of gallbladder with acute and chronic cholecystitis without obstruction Code(s): K80.10 - Calculus of gallbladder with chronic cholecystitis without obstruction Status: Inactive Assessment and Plan: 05/06/2023: the patient presented to the emergency department for evaluation of right-sided pain and nausea Upper quadrant ultrasound showed a stone in the gallbladder neck and his history seems consistent with developing cholecystitis with cholelithiasis. general surgery consulted He has been started on Zosyn. LFTs are all normal. Started on clear liquid and being advanced however did not tolerate advancement. cholecystectomy pod 2 Continue IV fluid and IV Zosyn as ordered. (2) Essential (primary) hypertension: Code(s): I10 - Essential (primary) hypertension Status: Chronic Assessment and Plan: monitor blood pressures. (3) Dyslipidemia: Code(s): E78.5 - Hyperlipidemia, unspecified Status: Chronic Assessment and Plan: Hold atorvastatin for now. (4) Prediabetes: Code(s): R73.03 - Prediabetes Status: Acute Assessment and Plan: Monitor blood sugars. Subjective Date/time seen: 05/11/23 11:55 Exam Narrative: GENERAL: Comfortable, no acute distress HENMT: moist mucous membranes EYES: EOM intact b/l NECK: no lymphadenopathy RESPIRATORY: clear to auscultation CARDIO: RRR GI: soft, Left upper quadrant tenderness, bowel sounds present; ORESTES drain with yellow fluid draining, abdominal incisions healing well without pus or drainage SKIN: no rashes EXTREMITIES: no edema, redness or tenderness Objective Data Vital Signs Vital Signs: Vital Signs - 24 hr 05/10/23 14:45 05/10/23 20:00 05/10/23 22:00 Temperature 98.0 F 97.7 F Pulse Rate 80 80 Respiratory Rate 16 20 Blood Pressure 149/95 H 149/97 H Pulse Oximetry 95 91 Oxygen Delivery Room Air 05/11/23 06:00 05/11/23 06:55 05/11/23 07:43 Temperature 97.8 F Pulse Rate 73 85 Respiratory Rate 20 Blood Pressure 162/104 H 170/91 H Pulse Oximetry 94 96 Oxygen Delivery Room Air Intake/Output Intake/Output: Intake & Output 05/08/23 05/09/23 05/10/23 05/11/23 23:59 23:59 23:59 23:59 Intake Total 1520 2270 3745 740 Output Total 1025 285 65 255 Balance 495 1985 3680 485 Meds/Results Medications: Active Medications Generic Name Dose Route Start Last Admin Trade Name Freq PRN Reason Stop Dose Admin Acetaminophen 500 mg 05/08/23 15:32 05/11/23 08:27 Acetaminophen 500 Mg Tablet PO 500 mg Q6H PRN Administration Mild Pain (1-3) or Fever Hydrocodone Bitart/Acetaminophen 1 tab 05/08/23 15:32 Hydrocodone/Acetaminophen (*Crx) 5-325 Mg Tablet PO Q4H PRN Pain Rated 4-6 Hydrocodone Bitart/Acetaminophen 1 tab 05/08/23 15:32 05/11/23 05:28 Hydrocodone/Acetaminophen (*Crx) 7.5-325 Mg Tablet PO 1 tab Q4H PRN Administration Pain Rated 7-10 Dextrose 12.5 gm 05/05/23 14:16 Dextrose 50% 25 Gm/50 Ml Syringe IV PUSH PRN PRN Hypoglycemia Protocol Enoxaparin Sodium 30 mg 05/07/23 09:00 05/11/23 08:27 Enoxaparin 30 Mg/0.3 Ml Syringe SUB-Q 30 mg DAILY [facility] Administration Famotidine 20 mg 05/08/23 21:00 05/11/23 08:23 Famotidine 20 Mg Tablet PO 20 mg Q12HR [facility] Administration Fentanyl Citrate 25 mcg 05/08/23 12:08 Fentanyl Citrate Inj (*Crx) 100 Mcg/2 Ml Vial IV PUSH Q2M PRN Pain Glucagon 1 mg 05/05/23 14:16 Glucagon For Inj 1 Mg Vial IM PRN PRN Hypoglycemia Protocol Glucose 15 gm 05/05/23 14:16 Glucose Oral Gel 15 Gm Of Glucse In 37.5 Gm Tube PO PRN PRN H
[2023-05-11 12:17] LABS: Glucose Point of Care 154 mg/dl (65-105)
--- NOTE | 2023-05-11 12:18 | PM.PNGS ---
Progress Note: A&P Assessment and Plan (1) Cholelithiasis with acute on chronic cholecystitis without biliary obstruction: Code(s): K80.12 - Calculus of gallbladder with acute and chronic cholecystitis without obstruction Status: Acute Assessment and Plan: Status post laparoscopic cholecystectomy for acute cholecystitis with purulent bile. White blood count is normal. No fevers. ORESTES drain was removed today. From a surgical standpoint he will be discharged home on oral antibiotics for the next 7 days. Discharge at the discretion of primary team. He needs to follow see Dr. Duong in the office in 10 to 14 days. Subjective Subjective Date/Time Seen: 05/11/23 12:18 Interval history: Patient is doing well today. No right upper quadrant pain. Eating solid diet without problems. White blood cell count is normal. Primary team is going to chest x-ray as he was a little bit congested this morning. Results are pending. Exam GI: Other: Abdomen is soft and nondistended. Port sites are healing well. ORESTES drain is mostly serous fluid and not bilious. Output volume is low. Objective Data Vital Signs Vital Signs: Vital Signs - 24 hr 05/10/23 14:45 05/10/23 20:00 05/10/23 22:00 Temperature 36.7 C 36.5 C Pulse Rate 80 80 Respiratory Rate 16 20 Blood Pressure 149/95 H 149/97 H Pulse Oximetry 95 91 Oxygen Delivery Room Air 05/11/23 06:00 05/11/23 06:55 05/11/23 07:43 Temperature 36.6 C Pulse Rate 73 85 Respiratory Rate 20 Blood Pressure 162/104 H 170/91 H Pulse Oximetry 94 96 Oxygen Delivery Room Air Intake/Output Intake/Output: Intake & Output 05/08/23 05/09/23 05/10/23 05/11/23 23:59 23:59 23:59 23:59 Intake Total 1520 2270 3745 740 Output Total 1025 285 65 255 Balance 495 1985 3680 485 Meds/Results Medications: Active Medications Generic Name Dose Route Start Last Admin Trade Name Freq PRN Reason Stop Dose Admin Acetaminophen 500 mg 05/08/23 15:32 05/11/23 08:27 Acetaminophen 500 Mg Tablet PO 500 mg Q6H PRN Administration Mild Pain (1-3) or Fever Hydrocodone Bitart/Acetaminophen 1 tab 05/08/23 15:32 Hydrocodone/Acetaminophen (*Crx) 5-325 Mg Tablet PO Q4H PRN Pain Rated 4-6 Hydrocodone Bitart/Acetaminophen 1 tab 05/08/23 15:32 05/11/23 05:28 Hydrocodone/Acetaminophen (*Crx) 7.5-325 Mg Tablet PO 1 tab Q4H PRN Administration Pain Rated 7-10 Dextrose 12.5 gm 05/05/23 14:16 Dextrose 50% 25 Gm/50 Ml Syringe IV PUSH PRN PRN Hypoglycemia Protocol Enoxaparin Sodium 30 mg 05/07/23 09:00 05/11/23 08:27 Enoxaparin 30 Mg/0.3 Ml Syringe SUB-Q 30 mg DAILY [facility] Administration Famotidine 20 mg 05/08/23 21:00 05/11/23 08:23 Famotidine 20 Mg Tablet PO 20 mg Q12HR J[facility]ON Administration Fentanyl Citrate 25 mcg 05/08/23 12:08 Fentanyl Citrate Inj (*Crx) 100 Mcg/2 Ml Vial IV PUSH Q2M PRN Pain Glucagon 1 mg 05/05/23 14:16 Glucagon For Inj 1 Mg Vial IM PRN PRN Hypoglycemia Protocol Glucose 15 gm 05/05/23 14:16 Glucose Oral Gel 15 Gm Of Glucse In 37.5 Gm Tube PO PRN PRN Hypoglycemia Protocol Piperacillin/Tazobactam/Dextrose 3.375 gm in 50 mls @ 100 mls/hr 05/04/23 18:00 05/11/23 05:56 Zosyn 3.375 Gm/Ns 50 Ml IVPB Infused Q6HR [facility] Infusion Ibuprofen 800 mg in 200 mls @ 400 mls/hr 05/04/23 15:23 05/05/23 09:38 Caldolor 800 Mg/200 Ml IVPB 400 mls/hr Q6H PRN Administration Pain Rated 1-3 Dextrose 1,000 mls @ 100 mls/hr 05/05/23 14:16 Dextrose 5% 1,000 Ml IVPB PRN PRN Hypoglycemia Protocol Insulin Aspart 2 - 5 units 05/05/23 17:00 05/11/23 08:23 Insulin Aspart (*Bkc) 100 Units/Ml SUB-Q Not Given TIDWM JORDON Protocol Insulin Aspart 1 - 2 units 05/05/23 21:00 05/10/23 22:56 Insulin Aspart (*Bkc) 100 Units/Ml SUB-Q Not Given HS [facility] Protocol Naloxone HCl 0.1
--- NOTE | 2023-05-11 13:40 | PM.DS ---
DS: Admitting Diagnosis Discharge Date 05/11/23 Admitting Diagnosis acute cholecystitis DS: Discharge Diagnosis Discharge Diagnosis (1) Cholecystitis with cholelithiasis: Qualifiers: Biliary obstruction: without biliary obstruction Cholecystitis acuity: acute and chronic Cholelithiasis location: gallbladder Qualified Code(s): K80.12 - Calculus of gallbladder with acute and chronic cholecystitis without obstruction Code(s): K80.10 - Calculus of gallbladder with chronic cholecystitis without obstruction Status: Inactive Assessment and Plan: 05/06/2023: the patient presented to the emergency department for evaluation of right-sided pain and nausea Upper quadrant ultrasound showed a stone in the gallbladder neck and his history seems consistent with developing cholecystitis with cholelithiasis. general surgery consulted Zosyn transition to Augmentin. LFTs are all normal. Started on clear liquid and being advanced however did not tolerate advancement. cholecystectomy pod 3 (2) Essential (primary) hypertension: Code(s): I10 - Essential (primary) hypertension Status: Chronic Assessment and Plan: monitor blood pressures. (3) Dyslipidemia: Code(s): E78.5 - Hyperlipidemia, unspecified Status: Chronic Assessment and Plan: Hold atorvastatin for now. (4) Prediabetes: Code(s): R73.03 - Prediabetes Status: Acute Assessment and Plan: Monitor blood sugars. DS: Summary Hospital Course Hospital Course: 87-year-old male with the past medical history of hyperlipidemia, prediabetes the presents to the ED on 05/04/2023 for evaluation abdominal pain. [place] was [place] [phone] and right upper quadrant ultrasound showing 8 mm suspected stone in the gallbladder neck. He was started on Zosyn in general surgery was consulted. Originally patient was plan to just have outpatient laparoscopic cholecystectomy but he was unable to tolerate his diet without having immense amount pain does he was scheduled for laparoscopic cholecystectomy while in the hospital. He underwent surgery on 05/08/2023. His diet was advanced and he tolerated this well. His ORESTES drain was removed on 05/11/2023. Patient's pain is well managed in the plan is to discharge home under the care of his . Is advised that he continue 7 days of oral antibiotics as an outpatient recommend follow-up with Dr. Duong in 10-14 days. He did develop some wheezing in his lungs and on chest x-ray showed mild interstitial edema. He was given 1 dose of Lasix and breath sounds became clear. His labs and vital signs are stable he is medically cleared for discharge. Time Spent with Patient Time attestation: Total time spent providing and/or coordinating discharge services: Exam Narrative: GENERAL: Comfortable, no acute distress HENMT: moist mucous membranes EYES: EOM intact b/l NECK: no lymphadenopathy RESPIRATORY: clear to auscultation CARDIO: RRR GI: soft, Left upper quadrant tenderness, bowel sounds present; ORESTES drain removed SKIN: no rashes EXTREMITIES: no edema, redness or tenderness DS: Data Data Completed and Pending Pending studies at discharge: Pending at discharge 05/08/23 13:07 Surgical [PTH] Routine Labs on day of discharge: Labs from last 24 hours 05/11/23 05/11/23 05/11/23 11:40 08:10 06:33 WBC 8.4 RBC 3.92 L Hgb 12.0 L Hct 38.3 L MCV 97.7 MCH 30.6 MCHC 31.3 L RDW 14.2 Plt Count 322 MPV 10.0 Sodium 140 Potassium 3.3 L Chloride 102 Carbon Dioxide 30 Anion Gap 8 BUN 11 Creatinine 1.10 Estim Creat Clear Calc 43 Estimated GFR > 60 Glucose 121 H POC Capillary Glucose 154 H 130 H Calcium 8.0 L Total Bilirubin 0.4 AST 30 ALT 31 Alkaline Phosphatase 55 Total Protein 6.0 L Albumin 3.3 L 05/10/23 05/10/23 21:28 16:59 WBC
[2023-05-11] MEDS: FUROSEMIDE INJ 40 MG/4 ML VIAL IV PUSH (13:50)
[2023-05-11 14:00] VITALS: BP 171/92; PULSE 78; RESP 15; TEMP 36.1; O2SAT 92
== END 2023-05-11 15:30 | disposition home or self-care (01) | DRG 419 ==
LOC: ANHED 10:24 → ANH3MEDSUR 14:10
PROVIDERS: Internal Medicine; Surgery; Admitting Provider Chiropractor; Emergency Provider Emergency Medicine; PCP Student in an Organized Health Care Education/Training Program; Visit Provider Internal Medicine Critical Care Medicine
PROC: 0FT44ZZ Resection of Gallbladder, Percutaneous Endoscopic Approach (ICD-10-PCS; CPT 47562; principal; 2023-05-08 12:30)
DX: K80.00 Calculus of gallbladder with acute cholecystitis without obstruction (principal); I10 Essential (primary) hypertension; E78.5 Hyperlipidemia, unspecified; R73.03 Prediabetes
CPT/HCPCS: 36415; 71045; 76705; 80053; 81003; 82274; 82948; 83690; 83735; 85014; 85018; 85025; 85027; 88304; 96361; 96365; 96366; 96367; 96372; 96375; 96376; 99285; A9270; C1713; G0378; J1100; J1650; J1741; J1940; J2270; J2405; J2543; J2704; J3010; J7030; J7120

== ENCOUNTER 2023-07-16 11:04 | Outpatient (CLI) | payer MEDICARE, SELFPAY ==
[2023-07-16 11:54] LABS: Alanine Aminotransferase 26 U/L (6-50); Aspartate Amino Transferase 34 U/L (17-59)
== END 2023-07-16 11:05 | disposition home or self-care (01) ==
PROVIDERS: PCP Student in an Organized Health Care Education/Training Program; Visit Provider Podiatrist Foot & Ankle Surgery
DX: B35.1 Tinea unguium (principal)
CPT/HCPCS: 36415; 84450; 84460